=== PATIENT | male | born 1945 | race Caucasian/White ===

== ENCOUNTER 2017-06-11 09:42 | Inpatient (IN) | payer OTHER ==
--- NOTE | 2017-06-11 10:17 | PDOC ---
History of Present Illness - General Chief Complaint: Shortness of Breath Stated Complaint: SOB Time Seen by Provider: 06/11/17 10:08 - History of Present Illness Initial Comments: 06/11/17 10:16 Mr. Garcia is a 71 yo male with a significant past medical history of COPD, CAD s/p CABG, HTN, PVD, and CVA who presents to the emergency department with a 1 week history of non-specific abdominal discomfort and subjective fever/chils with occasional dizziness, diarrhea, and lack of appetite. The patient denies chest pain, shortness of breath, and headache. Denies nausea , vomit, and constipation. Denies dysuria, frequency, urgency and hematuria. Allergies: Penicillins Past History - Past Medical History Allergies/Adverse Reactions: Allergies Allergy/AdvReac Type Severity Reaction Status Date / Time Penicillins Allergy Rash Verified 06/11/17 09:50 Home Medications: Ambulatory Orders Acetaminophen [Tylenol .Regular Strength -] 650 mg PO Q4H PRN #0 tablet Alprazolam [Xanax] 1 mg PO TID PRN #0 tablet 06/16/13 Aspirin [ASA -] 325 mg PO DAILY #0 tablet NS 06/16/13 Atorvastatin Ca [Lipitor] 20 mg PO HS #0 tablet 06/16/13 Budesonide/Formeterol Fumarate [SYMBICORT 80/4.5mcg -] 2 ih IH BID #1 inhaler Diltiazem Cd [Cardizem Cd -] 300 mg PO DAILY #0 cap.cd.24h 06/16/13 Tiotropium [place] [Spiriva] 1 inh PO DAILY #1 inh 06/16/13 Valsartan/Hydrochlorothiazide [Valsartan-Hctz 160-12.5 mg Tab] 1 each PO DAILY 06/11/17 Cardiac Disorders: Yes (CABG 2007) HTN: Yes - Surgical History Cardiac Surgery: Yes (CARDIAC BYPASS) - Immunization History Immunization Up to Date: Yes - Suicide/Smoking/Psychosocial Hx Smoking Status: Yes Smoking History: Former smoker Have you smoked in the past 12 months: No Number of Cigarettes Smoked Daily: 0 If you are a former smoker, when did you quit?: over 30 years ago Information on smoking cessation initiated: No Hx Alcohol Use: No Drug/Substance Use Hx: No Substance Use Type: None Hx Substance Use Treatment: No Review of Systems - Review of Systems Comments:: 06/11/17 10:16 GENERAL/CONSTITUTIONAL: +Subjective fever and chills. No weakness. HEAD, EYES, EARS, NOSE AND THROAT: No change in vision. No ear pain or discharge. No sore throat. CARDIOVASCULAR: No chest pain or shortness of breath RESPIRATORY: No cough, wheezing, or hemoptysis. GASTROINTESTINAL: +Some diarrhea with abdominal discomfort. No nausea, vomiting , or constipation. GENITOURINARY: No dysuria, frequency, or change in urination. MUSCULOSKELETAL: No joint or muscle swelling or pain. No neck or back pain. SKIN: No rash NEUROLOGIC: No headache, vertigo, loss of consciousness, or change in strength/ sensation. ENDOCRINE: No increased thirst. No abnormal weight change HEMATOLOGIC/LYMPHATIC: No anemia, easy bleeding. ALLERGIC/IMMUNOLOGIC: No hives or skin allergy. *Physical Exam - Vital Signs Last Vital Signs Temp Pulse Resp BP Pulse Ox 97.6 F 71 16 127/63 93 L 06/11/17 09:51 06/11/17 09:51 06/11/17 09:51 06/11/17 09:51 06/11/17 09:51 - Physical Exam Comments: 06/11/17 10:16 GENERAL: Awake, alert, and fully oriented, in no acute distress HEAD: No signs of trauma, normocephalic, atraumatic EYES: PERRLA, EOMI, sclera anicteric, conjunctiva clear ENT: Auricles normal inspection, hearing grossly normal, nares patent, oropharynx clear without exudates. Moist mucosa NECK: Normal ROM, supple, no lymphadenopathy, JVD, or masses LUNGS: No distress, speaks full sentences, clear to auscultation bilaterally HEART: Regular rate and rhythm, normal S1 and S2, no murmurs, rubs or gallops, peripheral pulses normal and equal bilaterally. ABDOMEN: +Extremely audible/active bowel sounds. Soft, nontender. No guarding, no rebound. No masses EXTREMITIES: Normal inspection, Normal range of motion, no edema. No clubbing or cyanosis. NEUROLOGICAL: Cranial nerves II through XII grossly intact. Normal speech, no focal sensorimotor deficits SKIN: Warm, Dry, normal turgor, no rashes or lesions noted. ED Treatment Course - LABORATORY CBC & Chemistry Diagram: 06/11/17 10:31 06/11/17 10:31 Medical Decision Making - Medical Decision Making 06/11/17 16:22 Mr. Garcia presents with vague abdominal / headache/dizziness symptoms. Concern for sepsis with WBC count 19.5. UA clean, blood cultures drawn and vanc/ zosyn started. Will admit for follow-up and determination of infection source. *DC/Admit/Observation/Transfer Diagnosis at time of Disposition: Sepsis Qualifiers: Sepsis type: sepsis due to unspecified organism Qualified Code(s): A41.9 - Sepsis, unspecified organism - Discharge Dispostion Admit: Yes - Referrals Referrals: Chantal Bui MD [Primary Care Provider] -
--- NOTE | 2017-06-11 10:29 | PDOC ---
Attending Attestation - Resident Resident Name: Syd Allen - ED Attending Attestation I have performed the following: I have examined & evaluated the patient, The case was reviewed & discussed with the resident, I agree w/resident's findings & plan, Exceptions are as noted - HPI HPI: 06/11/17 10:26 Dyspnea at baseline, Flu Shot yesterday, Doesn't feel well since, bloated - Physicial Exam PE: 06/11/17 10:26 VSS, Nontoxic, on 3L NC which he wears at home. - Medical Decision Making 06/11/17 10:[address] Allen's Assessment and PLan
[2017-06-11 10:52] LABS: EOSINOPHIL 0.7 % (0-4.5); MCH 29.9 pg (25.7-33.7); MCHC 31.9 g/dl (32.0-35.9); MEAN CELL VOLUME 93.7 fl (80-96); NEUTROPHILS 88.8 % (42.8-82.8); PLATELET COUNT 264 K/MM3 (134-434); RDW 13.3 % (11.9-15.9); WHITE BLOOD COUNT 19.5 K/mm3 (4.0-10.0)
[2017-06-11 11:20] LABS: ALBUMIN 2.5 g/dl (3.4-5.0); ANION GAP 8 (8-16); BILIRUBIN,TOTAL 0.4 mg/dL (0.2-1.0); CALCIUM 7.9 mg/dL (8.5-10.1); CO2 28 mmol/L (21-32); CREATININE 2.6 mg/dL (0.7-1.3); GLUCOSE,RANDOM 154 mg/dL (74-106); SGPT/ALT 24 U/L (12-78); TOT PROT 6.3 g/dl (6.4-8.2)
[2017-06-11 11:23] LABS: ALK PHOS 47 U/L (45-117); TROPONIN I 0.02 ng/ml (0.00-0.05)
[2017-06-11 11:27] LABS: CPK 174 IU/L (39-308); SGOT/AST 39 U/L (15-37)
--- NOTE | 2017-06-11 11:27 | EKG ---
Test Reason : Blood Pressure : / mmHG Vent. Rate : 064 BPM Atrial Rate : 064 BPM P-R Int : 184 ms QRS Dur : 116 ms QT Int : 430 ms P-R-T Axes : 062 -03 085 degrees QTc Int : 443 ms SINUS RHYTHM WITH OCCASIONAL PREMATURE VENTRICULAR COMPLEXES NONSPECIFIC INTERVENTRICULAR CONDUCTION DELAY SEPTAL INFARCT CANNOT BE EXCLUDED ABNORMAL ECG WHEN COMPARED WITH ECG OF 01-APR-2015 13:22, LOSS OF R WAVE IN V2 NONSPECIFIC T WAVE ABNORMALITY NO LONGER EVIDENT IN INFERIOR LEADS CLINICAL; CORRELATION AND FOLLOW U TRACING IS RECOMMENDED Confirmed by SHERLYN LOPEZ MD ([id number]) on 06/11/2017 11:27:12 AM Referred By: Confirmed By:SHERLYN LOPEZ MD
[2017-06-11] MEDS ORDERED: VANCOMYCIN 1 GRAM (PRE-DOCKED) 1,000 MG/250 ML BAG IVPB ONE (15:23)
[2017-06-11 15:56] LABS: URINE APPEARANCE SLCLOUDY; URINE BILIRUBIN NEGATIVE (NEGATIVE); URINE BLOOD NEGATIVE (NEGATIVE); URINE COLOR YELLOW; URINE GLUCOSE (UA) NEGATIVE (NEGATIVE); URINE KETONE NEGATIVE (NEGATIVE); URINE LEUK ESTERASE NEGATIVE (NEGATIVE); URINE NITRITE NEGATIVE (NEGATIVE); URINE PROTEIN 1+ (NEGATIVE); URINE UROBILINOGEN NEGATIVE mg/dL (0.2-1.0)
[2017-06-11] MEDS ORDERED: PIPERACILLIN/TAZOB 3.375 GM/50 ML PRE-DOCKED IVPB SCH ×2 (16:00→22:00)
[2017-06-11] MEDS ORDERED: VANCOMYCIN 1 GRAM (PRE-DOCKED) 250 ML IVPB ONE (16:16)
[2017-06-11] MEDS ORDERED: PIPERACILLIN/TAZOB 3.375 GM 50 ML IVPB ONE (16:17)
[2017-06-11 16:49] LABS: URINE BACTERIA RARE /hpf (NONE SEEN); URINE HYALINE CAST 1 /lpf; URINE MUCUS RARE; URINE WBC 1 /hpf (3-5)
[2017-06-11] MEDS ORDERED: ACETAMINOPHEN 325 MG TABLET (FP) PO PRN (20:58)
[2017-06-11] MEDS ORDERED: ALPRAZolam 2 MG TABLET PO PRN (20:59)
[2017-06-11] MEDS ORDERED: PIPERACILLIN/TAZOBACTAM 3.375 GM VIAL IVPB ONE (21:46)
[2017-06-11] MEDS ORDERED: DEXTROSE 5%-WATER - 50 ML IVPB ONE (21:46)
[2017-06-11] MEDS ORDERED: PIPERACILLIN/TAZOB 3.375 GM 3.375 GM in DEXTROSE 5%-WATER - 50 ML IVPB ONE (22:00)
[2017-06-11] MEDS: ATORVASTATIN CA 20 MG TABLET (FP) PO SCH (22:04)
[2017-06-11] MEDS: BUDESONIDE/FORMETEROL FUMARATE 80/4.5 mcg INHALER IH SCH (22:04)
[2017-06-11] MEDS: ACLIDINIUM BROMIDE 400 MCG/INH AERO.POWD IH SCH (22:05)
[2017-06-11] MEDS ORDERED: PT OWN MED DRAWER 7, Y5N ONE (22:19)
--- NOTE | 2017-06-12 09:43 | HP ---
DATE OF ADMISSION: DATE OF DICTATION: 06/12/2017 This is a 71-year-old male known to have COPD, ASHD status post CABG, CVA with right hemiparesis, lives alone at home, came to the emergency room yesterday with complaints of fever, not eating, weakness of 1 week duration. In the ER he was febrile, and WBC count was high so got admitted. PHYSICAL EXAMINATION: General: Today he is awake, alert, and talking. Vital Signs: Stable. No fever today. BP is 140/80, pulse 72, respirations 20, temperature 98. HEENT: Unremarkable. Neck: Supple. Lungs: Air entry poor. Heart: S1, S2 normal. No S3 or S4. Abdomen: Mild distention present. Bowel sounds normal. Genitourinary: Urine incontinence persists. Legs: No edema. Neurologic: Right hemiparesis persists. Skin: No rashes. LABORATORY REPORTS: WBC 19.5 with hemoglobin 13, hematocrit 40, platelets 264. Electrolytes: Sodium 132, potassium 5.3, chloride 96, BUN 49, creatinine 4.6, blood sugar 154. IMPRESSION: Fever of unknown etiology, dehydration, severe chronic obstructive pulmonary disease, hypertension. PLAN: ID consult, . Will resume the hydration. Will repeat CBC, CMP tomorrow. [place] [id number]
[2017-06-12] MEDS ORDERED: PT OWN MED DRAWER 7, Y5N ONE ×3 (09:49→20:36)
[2017-06-12] MEDS: ACLIDINIUM BROMIDE 400 MCG/INH AERO.POWD IH SCH ×2 (09:52→21:13)
[2017-06-12] MEDS: ASPIRIN 325 MG TABLET PO SCH (09:52)
[2017-06-12] MEDS: HEPARIN NA (PORCINE) 5,000 UNITS/ML 1ML VIAL SQ SCH ×2 (09:52→21:12)
[2017-06-12] MEDS: VALSARTAN 160 MG TABLET (UD) PO SCH (09:52)
[2017-06-12] MEDS: BUDESONIDE/FORMETEROL FUMARATE 80/4.5 mcg INHALER IH SCH ×2 (09:52→21:12)
[2017-06-12] MEDS ORDERED: HYDROCHLOROTHIAZIDE 12.5 MG CAPSULE (FP) PO SCH (10:00)
[2017-06-12] MEDS ORDERED: PIPERACILLIN/TAZOB 3.375 GM 3.375 GM in DEXTROSE 5%-WATER - 50 ML IVPB SCH (10:00)
--- NOTE | 2017-06-12 15:02 | CON.ID ---
Consult Consult Specialty:: infectious diseases Reason for Consultation:: cough/r/o pna/abd pain,leukocytosis - History of Present Illness Chief Complaint: cough,abd discomfort History of Present Illness: Mr. Garcia is a 71 yo male with a significant past medical history of COPD, CAD s/p CABG, HTN, PVD, and CVA admitted with 1 week history of non-specific abdominal discomfort and subjective fever/chils with occasional dizziness, diarrhea, and lack of appetite. patient has also been complaining of cough episodic patient has a known h/o of emphysema and is on home o2 currently he is very uncomfortable because of coughing episodes and breathing issues - History Source History Provided By: Patient Limitations to Obtaining History: No Limitations - Alcohol/Substance Use Hx Alcohol Use: No - Smoking History Smoking history: Former smoker Have you smoked in the past 12 months: No Aproximately how many cigarettes per day: 0 If you are a former smoker, when did you quit?: over 30 years ago Home Medications - Allergies Allergies/Adverse Reactions: Allergies Allergy/AdvReac Type Severity Reaction Status Date / Time Penicillins Allergy Rash Verified 06/11/17 09:50 - Home Medications Home Medications: Ambulatory Orders Acetaminophen [Tylenol .Regular Strength -] 650 mg PO Q4H PRN #0 tablet Alprazolam [Xanax] 1 mg PO TID PRN #0 tablet 06/16/13 Aspirin [ASA -] 325 mg PO DAILY #0 tablet NS 06/16/13 Atorvastatin Ca [Lipitor] 20 mg PO HS #0 tablet 06/16/13 Budesonide/Formeterol Fumarate [SYMBICORT 80/4.5mcg -] 2 ih IH BID #1 inhaler Diltiazem Cd [Cardizem Cd -] 300 mg PO DAILY #0 cap.cd.24h 06/16/13 Tiotropium [place] [Spiriva] 1 inh PO DAILY #1 inh 06/16/13 Valsartan/Hydrochlorothiazide [Valsartan-Hctz 160-12.5 mg Tab] 1 each PO DAILY 06/11/17 Review of Systems - Review of Systems Constitutional: reports: Weakness, Other Eyes: reports: No Symptoms HENT: reports: No Symptoms Neck: reports: No Symptoms Cardiovascular: reports: No Symptoms Respiratory: reports: SOB, SOB on Exertion Gastrointestinal: reports: Abdominal Pain, Other Genitourinary: reports: No Symptoms Musculoskeletal: reports: No Symptoms Integumentary: reports: No Symptoms Neurological: reports: No Symptoms Endocrine: reports: No Symptoms Hematology/Lymphatic: reports: No Symptoms Psychiatric: reports: No Symptoms Physical Exam Vital Signs: Vital Signs Temperature 99.6 F 06/12/17 13:43 Pulse Rate 77 06/12/17 13:43 Respiratory Rate 19 06/12/17 13:43 Blood Pressure 140/71 06/12/17 13:43 O2 Sat by Pulse Oximetry (%) 94 L 06/12/17 09:00 Constitutional: Yes: Calm, Moderate Distress Eyes: Yes: Conjunctiva Clear HENT: Yes: Atraumatic Neck: Yes: Supple, Trachea Midline Cardiovascular: Yes: S1, S2 Respiratory: Yes: On Nasal O2, Poor Air Entry (at the bases), Rhonchi Gastrointestinal: Yes: Distention, Hypoactive Bowel Sounds, Tenderness, Other ( constipation) Musculoskeletal: Yes: WNL Extremities: Yes: WNL Imaging - Results X-ray: Report Reviewed, Image Reviewed Assessment/Plan copd exacerebration r/o pneumonia r/o paralytic ileus constipation abd pain plan will continue zosyn--patient has already couple of doses with no apparent reaction would consider keeping npo for the time being will order ct scan patient might need laxatives resp support close watch on breathing
[2017-06-12] MEDS ORDERED: DEXTROSE 5%-WATER - 50 ML IVPB ONE (16:04)
[2017-06-12] MEDS ORDERED: PIPERACILLIN/TAZOBACTAM 2.25 GM VIAL IVPB ONE (16:04)
[2017-06-12] MEDS: PIPERACILLIN/TAZOB 2.25 GM 2.25 GM in DEXTROSE 5%-WATER - 50 ML IVPB SCH ×2 (16:12→19:57)
[2017-06-12] MEDS: methylPREDNISolone NA SUCC 125 MG/2 ML VIAL IVPB SCH (18:16)
[2017-06-12] MEDS ORDERED: ALBUTEROL SO4 2.5/IPRATROPIUM 0.5 INH SOL 3 ML VIAL.NEB. NEB ONE ×2 (18:28→18:30)
[2017-06-12 18:42] LABS: ARTERIAL BLD GAS O2 SATURATION 90.6 % (90-98.9); ARTERIAL BLOOD GAS BASE EXCESS 2.2 meq/l (-2-2); ARTERIAL BLOOD GAS HCO3 28.1 meq/L (22-26); ARTERIAL BLOOD GAS PO2 61.9 mmHg (70-100); ARTERIAL BLOOD GAS pH 7.36 (7.35-7.45)
[2017-06-12 18:44] LABS: ALLENS TEST POSITIVE; ART PUNCT SITE RIGHT RADIAL; PT. ON O2? yes
[2017-06-12 18:45] LABS: LPM/O2% 40%
--- NOTE | 2017-06-12 20:12 | RAPID ---
Physical Examination Vital Signs: Mr. Garcia is a 71 yo male with a significant past medical history of COPD, CAD s/p CABG, HTN, PVD, and CVA who presents to the emergency department with a 1 week history of non-specific abdominal discomfort and subjective fever/chils with occasional dizziness, diarrhea, and lack of appetite. Rapid response was called overhead and pet nutrition specialist team immediately responded. Patient was found on bed with labored breathing and pallor, 02 sat of 85% on 3L and BP of 175/90. Labs revealed elevated BUN/creatinine, ordered patricio. Stat CXR , ABG, patricio, Duoneb, Solumedrol, Symbicort and BiPap ordered. Patients O2 sat improved to 96% and VS of 135/70, HR of 85. PCP was contacted (Dr. Bui). Nephrology Consult recommended
[2017-06-12] MEDS: ATORVASTATIN CA 20 MG TABLET (FP) PO SCH (21:12)
[2017-06-13] MEDS ORDERED: DEXTROSE 5%-WATER - 50 ML IVPB ONE ×3 (00:49→18:13)
[2017-06-13] MEDS ORDERED: PIPERACILLIN/TAZOBACTAM 2.25 GM VIAL IVPB ONE ×3 (00:49→18:13)
[2017-06-13] MEDS: PIPERACILLIN/TAZOB 2.25 GM 2.25 GM in DEXTROSE 5%-WATER - 50 ML IVPB SCH ×3 (01:01→18:26)
[2017-06-13] MEDS: methylPREDNISolone NA SUCC 125 MG/2 ML VIAL IVPB SCH ×2 (02:35→09:29)
[2017-06-13] MEDS ORDERED: PT OWN MED DRAWER 7, Y5N ONE ×3 (09:22→20:39)
[2017-06-13] MEDS: VALSARTAN 160 MG TABLET (UD) PO SCH (09:28)
[2017-06-13] MEDS: ASPIRIN 325 MG TABLET PO SCH (09:29)
[2017-06-13] MEDS: BUDESONIDE/FORMETEROL FUMARATE 80/4.5 mcg INHALER IH SCH (09:30)
[2017-06-13] MEDS: HEPARIN NA (PORCINE) 5,000 UNITS/ML 1ML VIAL SQ SCH ×2 (09:35→21:08)
[2017-06-13] MEDS: ACLIDINIUM BROMIDE 400 MCG/INH AERO.POWD IH SCH (09:35)
--- NOTE | 2017-06-13 09:35 | CONSULT ---
Consultation: PULMONARY CONSULT REQUESTING PROVIDER: Dr. Bui CONSULT REQUEST: We have been asked to medically evaluate this patient for Hypoxia HPI: Mr. Garcia is a 71yo M with PMHx of COPD (on 3L O2 RTC), CAD (s/p CABG), CVA (w / residual R sided wkness). He presented to ER w/ gradual onset SOB + productive cough w/ thick, white sputum for a couple of days. He endorses recent fevers/chills along w/ headache, soft stools, and abdominal discomfort. Unsure of sick contacts. Recently received flu shot within the past month. Seen by Dr. Kim 3 weeks ago in office for gradual onset SOB, had O2 pre/post measurements, and was prescribed 3L O2 around the clock instead of as needed. In the ER, the patient had Tmax 100.5, WBC 19.5, diagnosed w/ +SIRS of unknown etiology, started on Vanc/Zosyn. On the floors, rapid response was called on the patient for labored breathing. His O2 sat was 85% on 3L. ABG ordered, showed likely chronic, compensated respiratory acidosis. Duonebs, Solumedrol, and BiPAP (w/ 35% O2) ordered with relief of symptoms and O2 sat improvement to 96%. Currently, the pt denies SOB, CP, and cough has decreased. 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 Smoking hx - Prior smoker, 100 pack year smoking history REVIEW OF SYSTEMS: CONSTITUTIONAL: Absent: fever, chills, diaphoresis, generalized weakness, malaise, loss of appetite, weight change HEENT: Absent: rhinorrhea, nasal congestion, throat pain, throat swelling, difficulty swallowing, mouth swelling, ear pain, eye pain, visual changes CARDIOVASCULAR: Absent: chest pain, syncope, palpitations, irregular heart rate, lightheadedness , peripheral edema RESPIRATORY: Absent: cough, shortness of breath, dyspnea with exertion, orthopnea, wheezing, stridor, hemoptysis GASTROINTESTINAL: Absent: abdominal pain, abdominal distension, nausea, vomiting, diarrhea, constipation, melena, hematochezia GENITOURINARY: Absent: dysuria, frequency, urgency, hesitancy, hematuria, flank pain, genital pain MUSCULOSKELETAL: Absent: myalgia, arthralgia, joint swelling, back pain, neck pain SKIN: Absent: rash, itching, pallor HEMATOLOGIC/IMMUNOLOGIC: Absent: easy bleeding, easy bruising, lymphadenopathy, frequent infections ENDOCRINE: Absent: unexplained weight gain, unexplained weight loss, heat intolerance, cold intolerance NEUROLOGIC: Absent: headache, focal weakness or paresthesias, dizziness, unsteady gait, seizure, mental status changes, bladder or bowel incontinence PSYCHIATRIC: Absent: anxiety, depression, suicidal or homicidal ideation, hallucinations. PHYSICAL EXAMINATION Vital Signs Temperature 97.6 F 06/13/17 06:00 Pulse Rate 64 06/13/17 06:00 Respiratory Rate 20 06/13/17 06:00 Blood Pressure 139/67 06/13/17 06:00 O2 Sat by Pulse Oximetry (%) 94 L 06/12/17 22:00 GEN: AAOx3, NAD, Lying comfortably on NC 3L, Does not look ill HEENT: PERRLA, EOMi, No cervical LAD CV: Distant heart sounds, S1, S2, RRR LUNG: Decreased breath sounds throughout, fine bibasilar crackles ABD: Soft, NT, ND, normoactive BS MSK: RUE 4/5, RLE 4/5, LUE 5/5, LLE 5/5. R pedal edema 2+ NEURO: CN 2-12 intact, R sided muscle strength reduced (from prior CVA) Laboratory Last Values WBC 19.5 K/mm3 (4.0-10.0) H D 06/11/17 10:31 RBC 4.36 M/mm3 (4.00-5.60) 06/11/17 10:31 Hgb 13.0 GM/dL (11.7-16.9) D 06/11/17 10:31 Hct 40.9 % (35.4-49) 06/11/17 10:31 MCV 93.7 fl (80-96) 06/11/17 10:31 MCH 29.9 pg (25.7-33.7) 06/11/17 10:31 MCHC 31.9 g/dl (32.0-35.9) L 06/11/17 10:31 RDW 13.3 % (11.9-15.9) 06/11/17 10:31 Plt Count 264 K/MM3 (134-434) D 06/11/17 10:31 MPV 9.0 fl (7.5-11.1) 06/11/17 10:31 Neutrophils % 88.8 % (42.8-82.8) H 06/11/17 10:31 Lymphocytes % 3.8 % (8-40) L D 06/11/17 10:31 Monocytes % 6.7 % (3.8-10.2) 06/11/17 10:31 Eosinophils % 0.7 % (0-4.5) 06/11/17 10:31 Basophils % 0.0 % (0-2.0) 06/11/17 10:31 Puncture Site Right radial 06/12/17 18:35 ABG pH 7.36 (7.35-7.45) 06/12/17 18:35 ABG pCO2 at Pt Temp 51.3 mmHg (35-45) H 06/12/17 18:35 ABG pO2 at Pt Temp 61.9 mmHg (70-100) L 06/12/17 18:35 ABG HCO3 28.1 meq/L (22-26) H 06/12/17 18:35 ABG O2 Sat (Measured) 90.6 % (90-98.9) 06/12/17 18:35 ABG O2 Content 16.2 % vol (15-22) 06/12/17 18:35 ABG Base Excess 2.2 meq/l (-2-2) H 06/12/17 18:35 Derrick Test Positive 06/12/17 18:35 O2 Delivery Device ventimask 06/12/17 18:35 Oxygen Flow Rate 40% 06/12/17 18:35 PEEP 0.0 cmH2O 06/12/17 18:35 Sodium 132 mmol/L (136-145) L 06/11/17 10:31 Potassium 5.3 mmol/L (3.5-5.1) H D 06/11/17 10:31 Chloride 96 mmol/L (98-107) L 06/11/17 10:31 Carbon Dioxide 28 mmol/L (21-32) 06/11/17 10:31 Anion Gap 8 (8-16) 06/11/17 10:31 BUN 49 mg/dL (7-18) H D 06/11/17 10:31 Creatinine 2.6 mg/dL (0.7-1.3) H D 06/11/17 10:31 Creat Clearance w eGFR 24.32 (>60) 06/11/17 10:31 Random Glucose 154 mg/dL (74-106) H D 06/11/17 10:31 Lactic Acid 0.8 mmol/L (0.4-2.0) 06/12/17 15:45 Calcium 7.9 mg/dL (8.5-10.1) L 06/11/17 10:31 Total Bilirubin 0.4 mg/dL (0.2-1.0) 06/11/17 10:31 AST 39 U/L (15-37) H D 06/11/17 10:31 ALT 24 U/L (12-78) D 06/11/17 10:31 Alkaline Phosphatase 47 U/L (45-117) D 06/11/17 10:31 Creatine Kinase 174 IU/L (39-308) 06/11/17 10:31 Creatine Kinase Index 1.3 % (0.0-5.0) 06/11/17 10:31 CK-MB (CK-2) 2.379 ng/mL (0.5-3.6) 06/11/17 10:31 Troponin I 0.02 ng/ml (0.00-0.05) 06/11/17 10:31 Total Protein 6.3 g/dl (6.4-8.2) L 06/11/17 10:31 Albumin 2.5 g/dl (3.4-5.0) L D 06/11/17 10:31 Urine Color Yellow 06/11/17 13:14 Urine Appearance Slcloudy 06/11/17 13:14 Urine pH 5.0 (5.0-8.0) D 06/11/17 13:14 Ur Specific [place] 1.020 (1.005-1.025) 06/11/17 13:14 Urine Protein 1+ (NEGATIVE) H 06/11/17 13:14 Urine Glucose (UA) Negative (NEGATIVE) 06/11/17 13:14 Urine Ketones Negative (NEGATIVE) 06/11/17 13:14 Urine Blood Negative (NEGATIVE) 06/11/17 13:14 Urine Nitrite Negative (NEGATIVE) 06/11/17 13:14 Urine Bilirubin Negative (NEGATIVE) 06/11/17 13:14 Urine Urobilinogen Negative mg/dL (0.2-1.0) 06/11/17 13:14 Urine RBC None /hpf (0-3) 06/11/17 13:14 Urine WBC 1 /hpf (3-5) 06/11/17 13:14 Ur Epithelial Cells Rare /hpf (FEW) 06/11/17 13:14 Urine Bacteria Rare /hpf (NONE SEEN) 06/11/17 13:14 Hyaline Casts 1 /lpf 06/11/17 13:14 Urine Mucus Rare 06/11/17 13:14 Home Medication List Medication Instructions Recorded Confirmed Type Valsartan/Hydrochlorothiazide 1 each PO DAILY 06/11/17 06/11/17 History [Valsartan-Hctz 160-12.5 mg Tab] Budesonide/Formeterol Fumarate 1 inh PO BID 06/13/17 06/13/17 History [SYMBICORT 160/4.5mcg -] Active Medications Generic Name Dose Route Start Last Admin Trade Name Freq PRN Reason Stop Dose Admin Acetaminophen 650 mg 06/11/17 20:58 06/12/17 02:07 Tylenol - PO 650 mg Q4H PRN Administration FEVER OR PAIN Alprazolam 1 mg 06/11/17 20:59 Xanax - PO Q8H PRN ANXIETY Aspirin 325 mg 06/12/17 10:00 06/13/17 09:29 Asa - PO 325 mg DAILY LUANN Administration Atorvastatin Calcium 20 mg 06/11/17 22:00 06/12/17 21:12 Lipitor - PO 20 mg HS LUANN Administration Budesonide/Formoterol Fumarate 1 puff 06/13/17 10:00 Symbicort 160/4.5mcg - IH BID LUANN Diltiazem HCl 300 mg 06/12/17 10:00 06/13/17 09:28 Cardizem Cd - PO 300 mg DAILY LUANN Administration Heparin Sodium (Porcine) 5,000 unit 06/12/17 10:00 06/13/17 09:35 Heparin - SQ 5,000 unit BID LUANN Administration Piperacillin Sod/Tazobactam 50 mls @ 100 mls/hr 06/12/17 15:00 06/13/17 01:01 Sod 2.25 gm/ Dextrose IVPB 100 mls/hr Q8H-IV LUANN Administration Protocol Methylprednisolone Sodium Succinate 100 mg 06/12/17 18:15 06/13/17 09:29 Solu-Medrol - IVPB 100 mg Q8H-IV LUANN Administration Tiotropium [place] 1 puff 06/13/17 10:00 Spiriva - IH DAILY LUANN Valsartan 160 mg 06/12/17 10:00 06/13/17 09:28 Diovan - PO 160 mg DAILY LUANN Administration IMAGING: CXR - No cardiopulmonary pathology ASSESSMENT/PLAN: Pt is a 71yo M with PMHx of COPD, CAD, CVA who presented w/ gradual onset SOB + productive cough, recent fevers/chills/headache/diarrhea admitted for likely COPD Exacerbation. # Acute COPD Exacerbation - secondary to likely viral infection, unlikely PNA - ABG shows likely chronic, compensated respiratory acidosis - Continue IV Solumedrol 100mg q8H - Added Albuterol Q4 PRN, avoid LINSEY bc patient already on LAMA - Continue O2 as needed - Continue BIPAP at 35% as needed - Continue home Spiriva + Symbicort - Abx unlikely needed at this time due to improved clinical status # +SIRS - unknown source - UA negative, Blood cx pending - If workup is negative, likely related to ?viral illness - F/u CBC, Temp Rest as per Primary. We will continue to follow the patient. Thank you Linnea Mary MD - PGY1 Visit type - Emergency Visit Emergency Visit: No - New Patient This patient is new to me today: Yes Date on this admission: 06/13/17 - Critical Care Critical Care patient: No
--- NOTE | 2017-06-13 09:50 | PN ---
Progress Note, Physician Chief Complaint: Feels better History of Present Illness: Had rapid response team attended last night Feels better this AM - Current Medication List Current Medications: Active Medications Acetaminophen (Tylenol -) 650 mg PO Q4H PRN PRN Reason: FEVER OR PAIN Last Admin: 06/12/17 02:07 Dose: 650 mg Alprazolam (Xanax -) 1 mg PO Q8H PRN PRN Reason: ANXIETY Aspirin (Asa -) 325 mg PO DAILY [facility] Last Admin: 06/13/17 09:29 Dose: 325 mg Atorvastatin Calcium (Lipitor -) 20 mg PO HS [facility] Last Admin: 06/12/17 21:12 Dose: 20 mg Budesonide/Formoterol Fumarate (Symbicort 80/4.5mcg -) 1 puff IH BID [facility] Last Admin: 06/13/17 09:30 Dose: 1 puff Diltiazem HCl (Cardizem Cd -) 300 mg PO DAILY [facility] Last Admin: 06/13/17 09:28 Dose: 300 mg Heparin Sodium (Porcine) (Heparin -) 5,000 unit SQ BID [facility] Last Admin: 06/13/17 09:35 Dose: 5,000 unit Piperacillin Sod/Tazobactam (Sod 2.25 gm/ Dextrose) 50 mls @ 100 mls/hr IVPB Q8H-IV [facility] PRN Reason: Protocol Last Admin: 06/13/17 01:01 Dose: 100 mls/hr Methylprednisolone Sodium Succinate (Solu-Medrol -) 100 mg IVPB Q8H-IV [facility] Last Admin: 06/13/17 09:29 Dose: 100 mg Valsartan (Diovan -) 160 mg PO DAILY [facility] Last Admin: 06/13/17 09:28 Dose: 160 mg - Objective Vital Signs: Vital Signs Temperature 97.6 F 06/13/17 06:00 Pulse Rate 64 06/13/17 06:00 Respiratory Rate 20 06/13/17 06:00 Blood Pressure 139/67 06/13/17 06:00 O2 Sat by Pulse Oximetry (%) 94 L 06/12/17 22:00 Constitutional: Yes: No Distress Eyes: Yes: WNL HENT: Yes: WNL Neck: Yes: WNL Cardiovascular: Yes: WNL Respiratory: Yes: On Nasal O2 ...Rectal Exam: Yes: WNL Musculoskeletal: Yes: Muscle Weakness Edema: No Neurological: Yes: Alert Psychiatric: Yes: Alert Assessment/Plan Continue same trt
[2017-06-13] MEDS ORDERED: ALBUTEROL SO4 2.5/IPRATROPIUM 0.5 INH SOL 3 ML VIAL.NEB. NEB PRN (09:57)
[2017-06-13] MEDS ORDERED: BUDESONIDE/FORMETEROL FUMARATE 160/4.5 mcg INHALER IH SCH (10:00)
--- NOTE | 2017-06-13 10:35 | PN ---
Teaching Attending Note Name of Resident: Linnea Mary ATTENDING PHYSICIAN STATEMENT I saw and evaluated the patient. I reviewed the resident's note and discussed the case with the resident. I agree with the resident's findings and plan as documented. SUBJECTIVE: 71 M, O2 dependent COPD (3L NC), CAD, S/P CABG, and CVA (w/ residual R sided weakness). Admitted via the ER due to progressive SOB, productive cough w/ thick, white sputum for a couple of days. No hemoptysis. No travel history or sick contacts. No overt fever or chills. 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 Improved with therapy and NIPPV. CXR: Chronic changes Intake & Output 06/10/17 06/11/17 06/12/17 06/13/17 23:59 23:59 23:59 23:59 Intake Total 50 200 100 Output Total 970 600 Balance 50 -770 -500 Weight 149 lb 1 oz 159 lb 2 oz 164 lb Last Vital Signs Temp Pulse Resp BP Pulse Ox 97.6 F 64 20 139/67 94 L 06/13/17 06:00 06/13/17 06:00 06/13/17 06:00 06/13/17 06:00 06/12/17 22:00 Active Medications Acetaminophen (Tylenol -) 650 mg PO Q4H PRN PRN Reason: FEVER OR PAIN Last Admin: 06/12/17 02:07 Dose: 650 mg Albuterol/Ipratropium (Duoneb -) 1 amp NEB Q4H PRN PRN Reason: SHORTNESS OF BREATH Alprazolam (Xanax -) 1 mg PO Q8H PRN PRN Reason: ANXIETY Aspirin (Asa -) 325 mg PO DAILY [facility] Last Admin: 06/13/17 09:29 Dose: 325 mg Atorvastatin Calcium (Lipitor -) 20 mg PO HS [facility] Last Admin: 06/12/17 21:12 Dose: 20 mg Budesonide/Formoterol Fumarate (Symbicort 160/4.5mcg -) 1 puff IH BID [facility] Diltiazem HCl (Cardizem Cd -) 300 mg PO DAILY [facility] Last Admin: 06/13/17 09:28 Dose: 300 mg Heparin Sodium (Porcine) (Heparin -) 5,000 unit SQ BID [facility] Last Admin: 06/13/17 09:35 Dose: 5,000 unit Piperacillin Sod/Tazobactam (Sod 2.25 gm/ Dextrose) 50 mls @ 100 mls/hr IVPB Q8H-IV [facility] PRN Reason: Protocol Last Admin: 06/13/17 10:27 Dose: 100 mls/hr Methylprednisolone Sodium Succinate (Solu-Medrol -) 100 mg IVPB Q8H-IV [facility] Last Admin: 06/13/17 09:29 Dose: 100 mg Tiotropium [place] (Spiriva -) 1 puff IH DAILY [facility] Valsartan (Diovan -) 160 mg PO DAILY [facility] Last Admin: 06/13/17 09:28 Dose: 160 mg GEN: AAOx3, NAD on 3 L NC HEENT: PERRLA, EOMi, No cervical LAD CV: Distant heart sounds, S1, S2, RRR LUNG: Decreased breath sounds throughout, fine bibasilar crackles ABD: Soft, NT, ND, normoactive BS MSK: RUE 4/5, RLE 4/5, LUE 5/5, LLE 5/5. R pedal edema 2+ NEURO: CN 2-12 intact, R sided muscle strength reduced (from prior CVA) Laboratory Results - last 24 hr 06/12/17 06/12/17 15:45 18:35 Puncture Site Right radial ABG pH 7.36 ABG pCO2 at Pt Temp 51.3 H ABG pO2 at Pt Temp 61.9 L ABG HCO3 28.1 H ABG O2 Sat (Measured) 90.6 ABG O2 Content 16.2 ABG Base Excess 2.2 H Derirck Test Positive O2 Delivery Device ventimask Oxygen Flow Rate 40% PEEP 0.0 Lactic Acid 0.8 ASSESSMENT/PLAN: Acute Exacerbation of COPD (?) Viral Illness No Radiographic evidence of PNA Acute on Chronic Bronchitis SIRS O2 dependent COPD IV Medrol O2 as needed BD TX Noted ABX per ID Follow cultures NIPPV if needed for WOB LAMA/LABA/ICS -> Avoid LINSEY VTE prophylaxis Will follow Dr Masterson
[2017-06-13] MEDS: TIOTROPIUM BROMIDE 18 MCG/INH (DEVICE W/ 5 CAPSULES) IH SCH (14:07)
[2017-06-13] MEDS: BUDESONIDE/FORMETEROL FUMARATE 160/4.5 mcg INHALER IH SCH ×2 (14:07→21:08)
--- NOTE | 2017-06-13 16:11 | PN ---
Progress Note, Physician History of Present Illness: patient was drinking contrast and then went into rapid response stabilized had a bm today no complaints - Current Medication List Current Medications: Active Medications Acetaminophen (Tylenol -) 650 mg PO Q4H PRN PRN Reason: FEVER OR PAIN Last Admin: 06/12/17 02:07 Dose: 650 mg Albuterol Sulfate (Ventolin 0.083% Nebulizer Soln -) 1 amp NEB Q4H PRN PRN Reason: SHORT OF BREATH/WHEEZING Alprazolam (Xanax -) 1 mg PO Q8H PRN PRN Reason: ANXIETY Aspirin (Asa -) 325 mg PO DAILY [facility] Last Admin: 06/13/17 09:29 Dose: 325 mg Atorvastatin Calcium (Lipitor -) 20 mg PO HS [facility] Last Admin: 06/12/17 21:12 Dose: 20 mg Budesonide/Formoterol Fumarate (Symbicort 160/4.5mcg -) 2 puff IH BID [facility] Last Admin: 06/13/17 14:07 Dose: Not Given Diltiazem HCl (Cardizem Cd -) 300 mg PO DAILY [facility] Last Admin: 06/13/17 09:28 Dose: 300 mg Heparin Sodium (Porcine) (Heparin -) 5,000 unit SQ BID [facility] Last Admin: 06/13/17 09:35 Dose: 5,000 unit Piperacillin Sod/Tazobactam (Sod 2.25 gm/ Dextrose) 50 mls @ 100 mls/hr IVPB Q8H-IV [facility] PRN Reason: Protocol Last Admin: 06/13/17 10:27 Dose: 100 mls/hr Methylprednisolone Sodium Succinate (Solu-Medrol -) 80 mg IVPB Q8H-IV [facility] Tiotropium [place] (Spiriva -) 1 puff IH DAILY [facility] Last Admin: 06/13/17 14:07 Dose: Not Given Valsartan (Diovan -) 160 mg PO DAILY [facility] Last Admin: 06/13/17 09:28 Dose: 160 mg - Objective Vital Signs: Vital Signs Temperature 98.4 F 06/13/17 14:52 Pulse Rate 70 06/13/17 14:52 Respiratory Rate 22 06/13/17 14:52 Blood Pressure 150/71 06/13/17 14:52 O2 Sat by Pulse Oximetry (%) 92 L 06/13/17 14:32 Constitutional: Yes: No Distress, Calm HENT: Yes: Atraumatic Cardiovascular: Yes: Regular Rate and Rhythm Respiratory: Yes: Poor Air Entry, Rhonchi Gastrointestinal: Yes: Normal Bowel Sounds, Soft Musculoskeletal: Yes: Other Extremities: Yes: Other Neurological: Yes: Alert, Oriented Psychiatric: Yes: Alert Assessment/Plan copd exacerebration r/o pneumonia r/o paralytic ileus constipation abd pain plan continue abx for now cx negative will stop abx from tomorrow close watch repeat labs tomorrow
[2017-06-13] MEDS: methylPREDNISolone NA SUCC 40 MG/1 ML VIAL IVPB SCH (18:26)
[2017-06-13] MEDS: ATORVASTATIN CA 20 MG TABLET (FP) PO SCH (21:08)
[2017-06-14] MEDS ORDERED: PIPERACILLIN/TAZOBACTAM 2.25 GM VIAL IVPB ONE ×3 (01:22→17:44)
[2017-06-14] MEDS: PIPERACILLIN/TAZOB 2.25 GM 2.25 GM in DEXTROSE 5%-WATER - 50 ML IVPB SCH ×3 (01:31→17:52)
[2017-06-14] MEDS: methylPREDNISolone NA SUCC 40 MG/1 ML VIAL IVPB SCH ×3 (02:09→17:46)
[2017-06-14] MEDS ORDERED: PT OWN MED DRAWER 7, Y5N ONE ×2 (05:39→10:37)
[2017-06-14 09:29] LABS: MCH 30.1 pg (25.7-33.7); MCHC 32.9 g/dl (32.0-35.9); MEAN CELL VOLUME 91.4 fl (80-96); PLATELET COUNT 343 K/MM3 (134-434); RDW 13.1 % (11.9-15.9); WHITE BLOOD COUNT 9.1 K/mm3 (4.0-10.0)
--- NOTE | 2017-06-14 09:29 | PN ---
Progress Note, Physician Chief Complaint: Feels better History of Present Illness: Feels weak - Current Medication List Current Medications: Active Medications Acetaminophen (Tylenol -) 650 mg PO Q4H PRN PRN Reason: FEVER OR PAIN Last Admin: 06/12/17 02:07 Dose: 650 mg Albuterol Sulfate (Ventolin 0.083% Nebulizer Soln -) 1 amp NEB Q4H PRN PRN Reason: SHORT OF BREATH/WHEEZING Alprazolam (Xanax -) 1 mg PO Q8H PRN PRN Reason: ANXIETY Last Admin: 06/13/17 21:12 Dose: 1 mg Aspirin (Asa -) 325 mg PO DAILY [facility] Last Admin: 06/13/17 09:29 Dose: 325 mg Atorvastatin Calcium (Lipitor -) 20 mg PO HS [facility] Last Admin: 06/13/17 21:08 Dose: 20 mg Budesonide/Formoterol Fumarate (Symbicort 160/4.5mcg -) 2 puff IH BID [facility] Last Admin: 06/13/17 21:08 Dose: 2 puff Diltiazem HCl (Cardizem Cd -) 300 mg PO DAILY [facility] Last Admin: 06/13/17 09:28 Dose: 300 mg Heparin Sodium (Porcine) (Heparin -) 5,000 unit SQ BID [facility] Last Admin: 06/13/17 21:08 Dose: 5,000 unit Piperacillin Sod/Tazobactam (Sod 2.25 gm/ Dextrose) 50 mls @ 100 mls/hr IVPB Q8H-IV [facility] PRN Reason: Protocol Last Admin: 06/14/17 01:31 Dose: 100 mls/hr Methylprednisolone Sodium Succinate (Solu-Medrol -) 80 mg IVPB Q8H-IV [facility] Last Admin: 06/14/17 02:09 Dose: 80 mg Tiotropium [place] (Spiriva -) 1 puff IH DAILY [facility] Last Admin: 06/13/17 14:07 Dose: Not Given Valsartan (Diovan -) 160 mg PO DAILY [facility] Last Admin: 06/13/17 09:28 Dose: 160 mg - Objective Vital Signs: Vital Signs Temperature 97.5 F L 06/14/17 09:00 Pulse Rate 76 06/14/17 09:00 Respiratory Rate 20 06/14/17 09:00 Blood Pressure 176/84 06/14/17 09:00 O2 Sat by Pulse Oximetry (%) 92 L 06/14/17 09:00 Constitutional: Yes: Mild Distress Eyes: Yes: WNL HENT: Yes: WNL Neck: Yes: WNL Cardiovascular: Yes: WNL Respiratory: Yes: On Nasal O2, Poor Air Entry Gastrointestinal: Yes: WNL ...Rectal Exam: Yes: Deferred Genitourinary: Yes: WNL Edema: No Peripheral Pulses WNL: Yes Neurological: Yes: Alert
[2017-06-14 09:56] LABS: ANION GAP 12 (8-16); CALCIUM 8.3 mg/dL (8.5-10.1); CO2 30 mmol/L (21-32); CREATININE 1.9 mg/dL (0.7-1.3); GLUCOSE,RANDOM 146 mg/dL (74-106)
[2017-06-14] MEDS ORDERED: DEXTROSE 5%-WATER - 50 ML IVPB ONE ×2 (10:37→17:44)
[2017-06-14] MEDS: TIOTROPIUM BROMIDE 18 MCG/INH (DEVICE W/ 5 CAPSULES) IH SCH (10:49)
[2017-06-14] MEDS: BUDESONIDE/FORMETEROL FUMARATE 160/4.5 mcg INHALER IH SCH ×2 (10:51→21:36)
[2017-06-14] MEDS: HEPARIN NA (PORCINE) 5,000 UNITS/ML 1ML VIAL SQ SCH ×2 (10:53→21:36)
[2017-06-14] MEDS: ASPIRIN 325 MG TABLET PO SCH (10:53)
[2017-06-14] MEDS: VALSARTAN 160 MG TABLET (UD) PO SCH (10:53)
--- NOTE | 2017-06-14 13:41 | PN ---
Physical Exam: PULMONARY SUBJECTIVE: Patient seen and examined. No CP or SOB overnight. Still has productive cough with thick white sputum. No fevers, no chills. Afebrile thoughout the night. Has not needed BiPAP, now on 2L NC OBJECTIVE: Vital Signs Period Temp Pulse Resp BP Sys/Ruiz Pulse Ox Last 24 Hr 97.5 F-98.4 F 69-76 20-22 143-176/71-84 92-97 GEN: AAOx3, NAD, Lying comfortably on NC 3L, Does not look ill HEENT: PERRLA, EOMi, No cervical LAD CV: Distant heart sounds, S1, S2, RRR LUNG: Decreased breath sounds throughout, no crackles ABD: Soft, NT, ND, normoactive BS MSK: RUE 4/5, RLE 4/5, LUE 5/5, LLE 5/5. R pedal edema 2+ NEURO: CN 2-12 intact, R sided muscle strength reduced (from prior CVA) Laboratory Last Values WBC 9.1 K/mm3 (4.0-10.0) D 06/14/17 08:30 RBC 4.37 M/mm3 (4.00-5.60) 06/14/17 08:30 Hgb 13.1 GM/dL (11.7-16.9) 06/14/17 08:30 Hct 39.9 % (35.4-49) 06/14/17 08:30 MCV 91.4 fl (80-96) 06/14/17 08:30 MCH 30.1 pg (25.7-33.7) 06/14/17 08:30 MCHC 32.9 g/dl (32.0-35.9) 06/14/17 08:30 RDW 13.1 % (11.9-15.9) 06/14/17 08:30 Plt Count 343 K/MM3 (134-434) D 06/14/17 08:30 MPV 8.0 fl (7.5-11.1) D 06/14/17 08:30 Neutrophils % 88.8 % (42.8-82.8) H 06/11/17 10:31 Lymphocytes % 3.8 % (8-40) L D 06/11/17 10:31 Monocytes % 6.7 % (3.8-10.2) 06/11/17 10:31 Eosinophils % 0.7 % (0-4.5) 06/11/17 10:31 Basophils % 0.0 % (0-2.0) 06/11/17 10:31 Puncture Site Right radial 06/12/17 18:35 ABG pH 7.36 (7.35-7.45) 06/12/17 18:35 ABG pCO2 at Pt Temp 51.3 mmHg (35-45) H 06/12/17 18:35 ABG pO2 at Pt Temp 61.9 mmHg (70-100) L 06/12/17 18:35 ABG HCO3 28.1 meq/L (22-26) H 06/12/17 18:35 ABG O2 Sat (Measured) 90.6 % (90-98.9) 06/12/17 18:35 ABG O2 Content 16.2 % vol (15-22) 06/12/17 18:35 ABG Base Excess 2.2 meq/l (-2-2) H 06/12/17 18:35 Derrick Test Positive 06/12/17 18:35 O2 Delivery Device ventimask 06/12/17 18:35 Oxygen Flow Rate 40% 06/12/17 18:35 PEEP 0.0 cmH2O 06/12/17 18:35 Sodium 135 mmol/L (136-145) L 06/14/17 08:30 Potassium 5.3 mmol/L (3.5-5.1) H 06/14/17 08:30 Chloride 93 mmol/L (98-107) L 06/14/17 08:30 Carbon Dioxide 30 mmol/L (21-32) 06/14/17 08:30 Anion Gap 12 (8-16) 06/14/17 08:30 BUN 63 mg/dL (7-18) H D 06/14/17 08:30 Creatinine 1.9 mg/dL (0.7-1.3) H D 06/14/17 08:30 Creat Clearance w eGFR 24.32 (>60) 06/11/17 10:31 Random Glucose 146 mg/dL (74-106) H 06/14/17 08:30 Lactic Acid 0.8 mmol/L (0.4-2.0) 06/12/17 15:45 Calcium 8.3 mg/dL (8.5-10.1) L 06/14/17 08:30 Total Bilirubin 0.4 mg/dL (0.2-1.0) 06/11/17 10:31 AST 39 U/L (15-37) H D 06/11/17 10:31 ALT 24 U/L (12-78) D 06/11/17 10:31 Alkaline Phosphatase 47 U/L (45-117) D 06/11/17 10:31 Creatine Kinase 174 IU/L (39-308) 06/11/17 10:31 Creatine Kinase Index 1.3 % (0.0-5.0) 06/11/17 10:31 CK-MB (CK-2) 2.379 ng/mL (0.5-3.6) 06/11/17 10:31 Troponin I 0.02 ng/ml (0.00-0.05) 06/11/17 10:31 Total Protein 6.3 g/dl (6.4-8.2) L 06/11/17 10:31 Albumin 2.5 g/dl (3.4-5.0) L D 06/11/17 10:31 Urine Color Yellow 06/11/17 13:14 Urine Appearance Slcloudy 06/11/17 13:14 Urine pH 5.0 (5.0-8.0) D 06/11/17 13:14 Ur Specific [place] 1.020 (1.005-1.025) 06/11/17 13:14 Urine Protein 1+ (NEGATIVE) H 06/11/17 13:14 Urine Glucose (UA) Negative (NEGATIVE) 06/11/17 13:14 Urine Ketones Negative (NEGATIVE) 06/11/17 13:14 Urine Blood Negative (NEGATIVE) 06/11/17 13:14 Urine Nitrite Negative (NEGATIVE) 06/11/17 13:14 Urine Bilirubin Negative (NEGATIVE) 06/11/17 13:14 Urine Urobilinogen Negative mg/dL (0.2-1.0) 06/11/17 13:14 Urine RBC None /hpf (0-3) 06/11/17 13:14 Urine WBC 1 /hpf (3-5) 06/11/17 13:14 Ur Epithelial Cells Rare /hpf (FEW) 06/11/17 13:14 Urine Bacteria Rare /hpf (NONE SEEN) 06/11/17 13:14 Hyaline Casts 1 /lpf 06/11/17 13:14 Urine Mucus Rare 06/11/17 13:14 Active Medications Generic Name Dose Route Start Last Admin Trade Name Freq PRN Reason Stop Dose Admin Acetaminophen 650 mg 06/11/17 20:58 06/12/17 02:07 Tylenol - PO 650 mg Q4H PRN Administration FEVER OR PAIN Albuterol Sulfate 1 amp 06/13/17 10:37 Ventolin 0.083% Nebulizer Soln - NEB Q4H PRN SHORT OF BREATH/WHEEZING Alprazolam 1 mg 06/11/17 20:59 06/13/17 21:12 Xanax - PO 1 mg Q8H PRN Administration ANXIETY Aspirin 325 mg 06/12/17 10:00 06/14/17 10:53 Asa - PO 325 mg DAILY [facility] Administration Atorvastatin Calcium 20 mg 06/11/17 22:00 06/13/17 21:08 Lipitor - PO 20 mg HS [facility] Administration Budesonide/Formoterol Fumarate 2 puff 06/13/17 11:00 06/14/17 10:51 Symbicort 160/4.5mcg - IH 2 puff BID [facility] Administration Diltiazem HCl 300 mg 06/12/17 10:00 06/14/17 10:53 Cardizem Cd - PO 300 mg DAILY [facility] Administration Heparin Sodium (Porcine) 5,000 unit 06/12/17 10:00 06/14/17 10:53 Heparin - SQ 5,000 unit BID [facility] Administration Piperacillin Sod/Tazobactam 50 mls @ 100 mls/hr 06/12/17 15:00 06/14/17 10:56 Sod 2.25 gm/ Dextrose IVPB 100 mls/hr Q8H-IV [facility] Administration Protocol Methylprednisolone Sodium Succinate 80 mg 06/13/17 18:00 06/14/17 10:53 Solu-Medrol - IVPB 80 mg Q8H-IV [facility] Administration Tiotropium [place] 1 puff 06/13/17 10:00 06/14/17 10:49 Spiriva - IH 1 puff DAILY [facility] Administration Valsartan 160 mg 06/12/17 10:00 06/14/17 10:53 Diovan - PO 160 mg DAILY [facility] Administration IMAGING: CXR - No cardiopulmonary pathology ASSESSMENT/PLAN: Pt is a 71yo M with PMHx of COPD, CAD, CVA who presented w/ gradual onset SOB + productive cough, recent fevers/chills/headache/diarrhea admitted for likely COPD Exacerbation. # Acute COPD Exacerbation - secondary to likely viral infection, unlikely PNA - ABG shows likely chronic, compensated respiratory acidosis - On IV Solumedrol 100mg q8H - can taper steroids - Continue Albuterol Neb Q4 PRN, avoid LINSEY bc patient already on LAMA - Continue O2 as needed - Continue BIPAP at 35% as needed - Continue home Spiriva + Symbicort - Pt still on Zosyn, continue until tmrw as per ID # +SIRS - unknown source - UA negative, Blood cx neg to date - If workup is negative, likely related to ?viral illness - F/u CBC, Temp Rest as per Primary. We will continue to follow the patient. Discussed w/ Dr Kim. Linnea Mary MD - PGY1 Visit type - Emergency Visit Emergency Visit: No - New Patient This patient is new to me today: No - Critical Care Critical Care patient: No - Discharge Referral Referred to [facility] No
--- NOTE | 2017-06-14 13:51 | PN ---
Teaching Attending Note Name of Resident: Linnea Mary ATTENDING PHYSICIAN STATEMENT I saw and evaluated the patient. I reviewed the resident's note and discussed the case with the resident. I agree with the resident's findings and plan as documented. PULMONARY ALERT,FEELING BETTER,LESS CONGESTED,+COUGH IMP Acute Exacerbation of COPD (?) Viral Illness No Radiographic evidence of PNA Acute on Chronic Bronchitis SIRS O2 dependent COPD TAPER IV Medrol O2 as needed BD TX ABX per ID NIPPV if needed for WOB LAMA/LABA/ICS -> Avoid LINSEY VTE prophylaxis DR TINSLEY Problem List - Problems (1) Sepsis Code(s): A41.9 - SEPSIS, UNSPECIFIED ORGANISM Qualifiers: Sepsis type: sepsis due to unspecified organism Qualified Code(s): A41.9 - Sepsis, unspecified organism (2) Weakness Code(s): R53.1 - WEAKNESS (3) Acute on chronic respiratory failure with hypoxemia Code(s): J96.21 - ACUTE AND CHRONIC RESPIRATORY FAILURE WITH HYPOXIA (4) COPD (chronic obstructive pulmonary disease) Code(s): J44.9 - CHRONIC OBSTRUCTIVE PULMONARY DISEASE, UNSPECIFIED (5) SIRS (systemic inflammatory response syndrome) Code(s): R65.10 - SIRS OF NON-INFECTIOUS ORIGIN W/O ACUTE ORGAN DYSFUNCTION
--- NOTE | 2017-06-14 15:00 | PN ---
Progress Note, Physician History of Present Illness: patient doing well no issues - Current Medication List Current Medications: Active Medications Acetaminophen (Tylenol -) 650 mg PO Q4H PRN PRN Reason: FEVER OR PAIN Last Admin: 06/12/17 02:07 Dose: 650 mg Albuterol Sulfate (Ventolin 0.083% Nebulizer Soln -) 1 amp NEB Q4H PRN PRN Reason: SHORT OF BREATH/WHEEZING Albuterol Sulfate (Ventolin Hfa Inhaler -) 2 puff IH Q4H PRN PRN Reason: SHORT OF BREATH/WHEEZING Alprazolam (Xanax -) 1 mg PO Q8H PRN PRN Reason: ANXIETY Last Admin: 06/13/17 21:12 Dose: 1 mg Aspirin (Asa -) 325 mg PO DAILY [facility] Last Admin: 06/14/17 10:53 Dose: 325 mg Atorvastatin Calcium (Lipitor -) 20 mg PO HS [facility] Last Admin: 06/13/17 21:08 Dose: 20 mg Budesonide/Formoterol Fumarate (Symbicort 160/4.5mcg -) 2 puff IH BID [facility] Last Admin: 06/14/17 10:51 Dose: 2 puff Diltiazem HCl (Cardizem Cd -) 300 mg PO DAILY [facility] Last Admin: 06/14/17 10:53 Dose: 300 mg Heparin Sodium (Porcine) (Heparin -) 5,000 unit SQ BID [facility] Last Admin: 06/14/17 10:53 Dose: 5,000 unit Piperacillin Sod/Tazobactam (Sod 2.25 gm/ Dextrose) 50 mls @ 100 mls/hr IVPB Q8H-IV [facility] PRN Reason: Protocol Last Admin: 06/14/17 10:56 Dose: 100 mls/hr Methylprednisolone Sodium Succinate (Solu-Medrol -) 60 mg IVPB Q8H-IV [facility] Tiotropium [place] (Spiriva -) 1 puff IH DAILY [facility] Last Admin: 06/14/17 10:49 Dose: 1 puff Valsartan (Diovan -) 160 mg PO DAILY [facility] Last Admin: 06/14/17 10:53 Dose: 160 mg - Objective Vital Signs: Vital Signs Temperature 97.5 F L 06/14/17 09:00 Pulse Rate 72 06/14/17 13:45 Respiratory Rate 20 06/14/17 09:00 Blood Pressure 176/84 09/29/17 09:00 O2 Sat by Pulse Oximetry (%) 93 L 06/14/17 13:45 Constitutional: Yes: No Distress, Calm Cardiovascular: Yes: Regular Rate and Rhythm Respiratory: Yes: Cough, On Nasal O2 Gastrointestinal: Yes: Normal Bowel Sounds, Soft Musculoskeletal: Yes: WNL Extremities: Yes: Other Neurological: Yes: Alert, Oriented Psychiatric: Yes: Alert, Oriented Labs: CBC, BMP 06/14/17 08:30 06/14/17 08:30 Assessment/Plan copd exacerebration r/o pneumonia r/o paralytic ileus constipation abd pain plan continue abx for now cx negative still with some cough will evaluate tomorrow and decide about the abx
[2017-06-14] MEDS: ATORVASTATIN CA 20 MG TABLET (FP) PO SCH (21:36)
[2017-06-14] MEDS: ALPRAZolam 2 MG TABLET PO PRN (22:41)
[2017-06-15] MEDS ORDERED: PIPERACILLIN/TAZOBACTAM 2.25 GM VIAL IVPB ONE ×3 (02:03→17:11)
[2017-06-15] MEDS ORDERED: DEXTROSE 5%-WATER - 50 ML IVPB ONE ×3 (02:03→17:12)
[2017-06-15] MEDS: PIPERACILLIN/TAZOB 2.25 GM 2.25 GM in DEXTROSE 5%-WATER - 50 ML IVPB SCH ×3 (02:11→17:21)
[2017-06-15] MEDS: methylPREDNISolone NA SUCC 40 MG/1 ML VIAL IVPB SCH ×3 (02:11→17:22)
[2017-06-15] MEDS: ALBUTEROL SO4 18 GM HFA INHALER IH PRN ×2 (05:18→21:42)
--- NOTE | 2017-06-15 08:59 | PN ---
Progress Note, Physician Chief Complaint: Feels better,SOB persists - Current Medication List Current Medications: Active Medications Acetaminophen (Tylenol -) 650 mg PO Q4H PRN PRN Reason: FEVER OR PAIN Last Admin: 06/12/17 02:07 Dose: 650 mg Albuterol Sulfate (Ventolin 0.083% Nebulizer Soln -) 1 amp NEB Q4H PRN PRN Reason: SHORT OF BREATH/WHEEZING Albuterol Sulfate (Ventolin Hfa Inhaler -) 2 puff IH Q4H PRN PRN Reason: SHORT OF BREATH/WHEEZING Last Admin: 06/15/17 05:18 Dose: 2 puff Alprazolam (Xanax -) 1 mg PO Q8H PRN PRN Reason: ANXIETY Last Admin: 06/14/17 22:41 Dose: 1 mg Aspirin (Asa -) 325 mg PO DAILY [facility] Last Admin: 06/14/17 10:53 Dose: 325 mg Atorvastatin Calcium (Lipitor -) 20 mg PO HS [facility] Last Admin: 06/14/17 21:36 Dose: 20 mg Budesonide/Formoterol Fumarate (Symbicort 160/4.5mcg -) 2 puff IH BID [facility] Last Admin: 06/14/17 21:36 Dose: 2 puff Diltiazem HCl (Cardizem Cd -) 300 mg PO DAILY [facility] Last Admin: 06/14/17 10:53 Dose: 300 mg Heparin Sodium (Porcine) (Heparin -) 5,000 unit SQ BID [facility] Last Admin: 06/14/17 21:36 Dose: 5,000 unit Piperacillin Sod/Tazobactam (Sod 2.25 gm/ Dextrose) 50 mls @ 100 mls/hr IVPB Q8H-IV [facility] PRN Reason: Protocol Last Admin: 06/15/17 02:11 Dose: 100 mls/hr Methylprednisolone Sodium Succinate (Solu-Medrol -) 60 mg IVPB Q8H-IV [facility] Last Admin: 06/15/17 02:11 Dose: 60 mg Tiotropium [place] (Spiriva -) 1 puff IH DAILY [facility] Last Admin: 06/14/17 10:49 Dose: 1 puff Valsartan (Diovan -) 160 mg PO DAILY [facility] Last Admin: 06/14/17 10:53 Dose: 160 mg - Objective Vital Signs: Vital Signs Temperature 98.3 F 06/15/17 06:42 Pulse Rate 82 06/15/17 06:42 Respiratory Rate 20 06/15/17 06:42 Blood Pressure 160/83 06/15/17 06:42 O2 Sat by Pulse Oximetry (%) 91 L 06/14/17 22:00 Constitutional: Yes: Mild Distress Eyes: Yes: WNL HENT: Yes: WNL Neck: Yes: WNL Cardiovascular: Yes: WNL Respiratory: Yes: On Nasal O2, Poor Air Entry Gastrointestinal: Yes: WNL ...Rectal Exam: Yes: WNL Genitourinary: Yes: Incontinence Breast(s): Yes: WNL Musculoskeletal: Yes: Muscle Weakness Edema: No Peripheral Pulses WNL: Yes Neurological: Yes: Alert ...Motor Strength: RUE (S/p CVA) Labs: CBC, BMP 06/14/17 08:30 06/14/17 08:30 Assessment/Plan Continue same trt
[2017-06-15] MEDS: ALBUTEROL SO4 0.083% IH SOL 2.5 MG/3 ML VIAL.NEB. NEB PRN (09:00)
[2017-06-15] MEDS ORDERED: PT OWN MED DRAWER 7, Y5N ONE ×2 (09:06→21:38)
[2017-06-15] MEDS: ASPIRIN 325 MG TABLET PO SCH (09:27)
[2017-06-15] MEDS: VALSARTAN 160 MG TABLET (UD) PO SCH (09:29)
[2017-06-15] MEDS: HEPARIN NA (PORCINE) 5,000 UNITS/ML 1ML VIAL SQ SCH ×2 (09:29→21:42)
[2017-06-15] MEDS: TIOTROPIUM BROMIDE 18 MCG/INH (DEVICE W/ 5 CAPSULES) IH SCH (09:37)
[2017-06-15] MEDS: BUDESONIDE/FORMETEROL FUMARATE 160/4.5 mcg INHALER IH SCH ×2 (09:39→21:41)
--- NOTE | 2017-06-15 13:27 | PN ---
Progress Note, Physician History of Present Illness: Pt seen and examined. chart, labs, imaging results reviewed. Pt states he feels well, no productive cough, afebrile. Had BM last night. - Current Medication List Current Medications: Active Medications Acetaminophen (Tylenol -) 650 mg PO Q4H PRN PRN Reason: FEVER OR PAIN Last Admin: 06/12/17 02:07 Dose: 650 mg Albuterol Sulfate (Ventolin 0.083% Nebulizer Soln -) 1 amp NEB Q4H PRN PRN Reason: SHORT OF BREATH/WHEEZING Last Admin: 06/15/17 09:00 Dose: 1 amp Albuterol Sulfate (Ventolin Hfa Inhaler -) 2 puff IH Q4H PRN PRN Reason: SHORT OF BREATH/WHEEZING Last Admin: 06/15/17 05:18 Dose: 2 puff Alprazolam (Xanax -) 1 mg PO Q8H PRN PRN Reason: ANXIETY Last Admin: 06/14/17 22:41 Dose: 1 mg Aspirin (Asa -) 325 mg PO DAILY [facility] Last Admin: 06/15/17 09:27 Dose: 325 mg Atorvastatin Calcium (Lipitor -) 20 mg PO HS [facility] Last Admin: 06/14/17 21:36 Dose: 20 mg Budesonide/Formoterol Fumarate (Symbicort 160/4.5mcg -) 2 puff IH BID [facility] Last Admin: 06/15/17 09:39 Dose: 2 puff Diltiazem HCl (Cardizem Cd -) 300 mg PO DAILY [facility] Last Admin: 06/15/17 09:28 Dose: 300 mg Heparin Sodium (Porcine) (Heparin -) 5,000 unit SQ BID [facility] Last Admin: 06/15/17 09:29 Dose: 5,000 unit Piperacillin Sod/Tazobactam (Sod 2.25 gm/ Dextrose) 50 mls @ 100 mls/hr IVPB Q8H-IV [facility] PRN Reason: Protocol Last Admin: 06/15/17 09:40 Dose: 100 mls/hr Methylprednisolone Sodium Succinate (Solu-Medrol -) 60 mg IVPB Q8H-IV [facility] Last Admin: 06/15/17 09:35 Dose: 60 mg Tiotropium [place] (Spiriva -) 1 puff IH DAILY [facility] Last Admin: 06/15/17 09:37 Dose: 1 puff Valsartan (Diovan -) 160 mg PO DAILY [facility] Last Admin: 06/15/17 09:29 Dose: 160 mg - Objective Vital Signs: Vital Signs Temperature 98.1 F 06/15/17 08:00 Pulse Rate 101 H 06/15/17 12:49 Respiratory Rate 20 06/15/17 08:00 Blood Pressure 153/74 06/15/17 08:00 O2 Sat by Pulse Oximetry (%) 92 L 06/15/17 12:49 Constitutional: Yes: No Distress, Calm, Other (on O2 nasal cannula) HENT: Yes: WNL Neck: Yes: Supple Cardiovascular: Yes: Regular Rate and Rhythm Respiratory: Yes: Poor Air Entry Gastrointestinal: Yes: Normal Bowel Sounds, Soft Genitourinary: Yes: WNL Extremities: Yes: WNL Integumentary: Yes: Rash (mild upper chest rash) Neurological: Yes: Alert, Oriented Labs: CBC, BMP 06/14/17 08:30 06/14/17 08:30 - ....Imaging Chest X-ray: Report Reviewed Problem List - Problems (1) Acute on chronic respiratory failure with hypoxemia Code(s): J96.21 - ACUTE AND CHRONIC RESPIRATORY FAILURE WITH HYPOXIA (2) COPD (chronic obstructive pulmonary disease) Code(s): J44.9 - CHRONIC OBSTRUCTIVE PULMONARY DISEASE, UNSPECIFIED (3) SIRS (systemic inflammatory response syndrome) Code(s): R65.10 - SIRS OF NON-INFECTIOUS ORIGIN W/O ACUTE ORGAN DYSFUNCTION (4) Weakness Code(s): R53.1 - WEAKNESS Assessment/Plan Acute COPD Exacerbation Possibe Pneumonitis Leukocytosis Mild rash - pt afebrile, wbc now normal, clinically improved -d/c zosyn for now and closely monitor continue supportive care
--- NOTE | 2017-06-15 13:32 | PN ---
Progress Note (short form) - Note Progress Note: PULMONARY SUBJECTIVE IMPROVEMENT VSS/AFEBRILE ANICTERIC SCATTERED RHONCHI S1S2 BS+ NO EDEMA LABS/MEDS/RADIOGRAPHS/NOTES REVIEWED Acute Exacerbation of COPD Acute on Chronic Bronchitis SIRS O2 dependent COPD TAPER IV Medrol O2 as needed BD TX ABX per ID NIPPV if needed for WOB LAMA/LABA/ICS -> Avoid LINSEY VTE prophylaxsis Jaya BAEZ MD
[2017-06-15 16:30] LABS: MCH 30.3 pg (25.7-33.7); MCHC 32.9 g/dl (32.0-35.9); MEAN PLT VOLUME 8.2 fl (7.5-11.1); PLATELET COUNT 301 K/MM3 (134-434); RDW 13.2 % (11.9-15.9); WHITE BLOOD COUNT 6.8 K/mm3 (4.0-10.0)
[2017-06-15 16:57] LABS: ALBUMIN 2.3 g/dl (3.4-5.0); ANION GAP 12 (8-16); BILIRUBIN,TOTAL 0.2 mg/dL (0.2-1.0); CALCIUM 8.2 mg/dL (8.5-10.1); CO2 31 mmol/L (21-32); CREATININE 2.5 mg/dL (0.7-1.3); GLUCOSE,RANDOM 281 mg/dL (74-106); SGOT/AST 32 U/L (15-37); SGPT/ALT 38 U/L (12-78); TOT PROT 5.9 g/dl (6.4-8.2)
[2017-06-15 16:58] LABS: ALK PHOS 40 U/L (45-117)
[2017-06-15 17:37] LABS: PLATELET ESTIMATE ADEQUATE (NORMAL); TOTAL CELLS COUNTED 100
[2017-06-15] MEDS: ATORVASTATIN CA 20 MG TABLET (FP) PO SCH (21:41)
[2017-06-15] MEDS: ALPRAZolam 2 MG TABLET PO PRN (21:41)
[2017-06-16] MEDS ORDERED: PIPERACILLIN/TAZOBACTAM 2.25 GM VIAL IVPB ONE ×2 (01:03→09:50)
[2017-06-16] MEDS ORDERED: DEXTROSE 5%-WATER - 50 ML IVPB ONE (01:03)
[2017-06-16] MEDS: methylPREDNISolone NA SUCC 40 MG/1 ML VIAL IVPB SCH ×3 (01:24→17:15)
[2017-06-16] MEDS: PIPERACILLIN/TAZOB 2.25 GM 2.25 GM in DEXTROSE 5%-WATER - 50 ML IVPB SCH ×2 (01:36→09:55)
[2017-06-16] MEDS ORDERED: PT OWN MED DRAWER 7, Y5N ONE ×2 (09:50→21:35)
[2017-06-16] MEDS: TIOTROPIUM BROMIDE 18 MCG/INH (DEVICE W/ 5 CAPSULES) IH SCH (09:53)
[2017-06-16] MEDS: BUDESONIDE/FORMETEROL FUMARATE 160/4.5 mcg INHALER IH SCH ×2 (09:53→21:36)
[2017-06-16] MEDS: VALSARTAN 160 MG TABLET (UD) PO SCH (09:54)
[2017-06-16] MEDS: HEPARIN NA (PORCINE) 5,000 UNITS/ML 1ML VIAL SQ SCH ×2 (09:54→21:17)
[2017-06-16] MEDS: ASPIRIN 325 MG TABLET PO SCH (09:54)
[2017-06-16] MEDS: ALPRAZolam 2 MG TABLET PO PRN (10:21)
[2017-06-16] MEDS: ALBUTEROL SO4 0.083% IH SOL 2.5 MG/3 ML VIAL.NEB. NEB PRN (10:28)
--- NOTE | 2017-06-16 12:17 | PN ---
Progress Note, Physician Chief Complaint: SOB less History of Present Illness: Admitted with fever and exacerbation of COPD Feels better - Current Medication List Current Medications: Active Medications Acetaminophen (Tylenol -) 650 mg PO Q4H PRN PRN Reason: FEVER OR PAIN Last Admin: 06/12/17 02:07 Dose: 650 mg Albuterol Sulfate (Ventolin 0.083% Nebulizer Soln -) 1 amp NEB Q4H PRN PRN Reason: SHORT OF BREATH/WHEEZING Last Admin: 06/16/17 10:28 Dose: 1 amp Albuterol Sulfate (Ventolin Hfa Inhaler -) 2 puff IH Q4H PRN PRN Reason: SHORT OF BREATH/WHEEZING Last Admin: 06/15/17 21:42 Dose: 2 puff Alprazolam (Xanax -) 1 mg PO Q8H PRN PRN Reason: ANXIETY Last Admin: 06/16/17 10:21 Dose: 1 mg Aspirin (Asa -) 325 mg PO DAILY [facility] Last Admin: 06/16/17 09:54 Dose: 325 mg Atorvastatin Calcium (Lipitor -) 20 mg PO HS [facility] Last Admin: 06/15/17 21:41 Dose: 20 mg Budesonide/Formoterol Fumarate (Symbicort 160/4.5mcg -) 2 puff IH BID [facility] Last Admin: 06/16/17 09:53 Dose: 2 puff Diltiazem HCl (Cardizem Cd -) 300 mg PO DAILY [facility] Last Admin: 06/16/17 09:54 Dose: 300 mg Heparin Sodium (Porcine) (Heparin -) 5,000 unit SQ BID [facility] Last Admin: 06/16/17 09:54 Dose: 5,000 unit Piperacillin Sod/Tazobactam (Sod 2.25 gm/ Dextrose) 50 mls @ 100 mls/hr IVPB Q8H-IV [facility] PRN Reason: Protocol Last Admin: 06/16/17 09:55 Dose: 100 mls/hr Methylprednisolone Sodium Succinate (Solu-Medrol -) 60 mg IVPB Q8H-IV [facility] Last Admin: 06/16/17 09:55 Dose: 60 mg Tiotropium [place] (Spiriva -) 1 puff IH DAILY [facility] Last Admin: 06/16/17 09:53 Dose: 1 puff Valsartan (Diovan -) 160 mg PO DAILY [facility] Last Admin: 06/16/17 09:54 Dose: 160 mg - Objective Vital Signs: Vital Signs Temperature 98.1 F 06/16/17 02:00 Pulse Rate 112 H 06/16/17 10:27 Respiratory Rate 20 06/16/17 02:00 Blood Pressure 153/81 06/16/17 02:00 O2 Sat by Pulse Oximetry (%) 93 L 06/16/17 10:27 Constitutional: Yes: Mild Distress Eyes: Yes: WNL HENT: Yes: WNL Neck: Yes: WNL Cardiovascular: Yes: WNL Respiratory: Yes: On Nasal O2, Poor Air Entry Gastrointestinal: Yes: Normal Bowel Sounds ...Rectal Exam: Yes: Deferred Genitourinary: Yes: WNL Musculoskeletal: Yes: Muscle Weakness Edema: No Neurological: Yes: Alert Psychiatric: Yes: Alert Labs: CBC, BMP 06/15/17 16:00 06/15/17 16:00 Assessment/Plan Cr went up 2.5 ,will get nephrology consult Dr Drew
[2017-06-16] MEDS ORDERED: guaiFENesin 200 MG/10 ML 10 ML UNIT-DOSE CUPS PO PRN (12:42)
--- NOTE | 2017-06-16 12:47 | PN ---
Progress Note (short form) - Note Progress Note: PULMONARY SUBJECTIVE IMPROVEMENT VSS/AFEBRILE ANICTERIC SCATTERED RHONCHI S1S2 BS+ NO EDEMA LABS/MEDS/RADIOGRAPHS/NOTES REVIEWED Acute Exacerbation of COPD Acute on Chronic Bronchitis SIRS O2 dependent COPD Increased CR Taper IV Medrol O2 as needed BD TX NIPPV PRN LAMA/LABA/ICS -> Avoid LINSEY VTE prophylaxsis renal eval/avoid nephrotoxic agents will hold zosyn for now Jaya BAEZ MD
--- NOTE | 2017-06-16 14:16 | PN ---
Progress Note, Physician History of Present Illness: Pt states he feels well. Denies shortness of breath or persistent productive cough. Remains afebrile and without any specific control - Current Medication List Current Medications: Active Medications Acetaminophen (Tylenol -) 650 mg PO Q4H PRN PRN Reason: FEVER OR PAIN Last Admin: 06/12/17 02:07 Dose: 650 mg Albuterol Sulfate (Ventolin 0.083% Nebulizer Soln -) 1 amp NEB Q4H PRN PRN Reason: SHORT OF BREATH/WHEEZING Last Admin: 06/16/17 10:28 Dose: 1 amp Albuterol Sulfate (Ventolin Hfa Inhaler -) 2 puff IH Q4H PRN PRN Reason: SHORT OF BREATH/WHEEZING Last Admin: 06/15/17 21:42 Dose: 2 puff Alprazolam (Xanax -) 1 mg PO Q8H PRN PRN Reason: ANXIETY Last Admin: 06/16/17 10:21 Dose: 1 mg Aspirin (Asa -) 325 mg PO DAILY [facility] Last Admin: 06/16/17 09:54 Dose: 325 mg Atorvastatin Calcium (Lipitor -) 20 mg PO HS [facility] Last Admin: 06/15/17 21:41 Dose: 20 mg Budesonide/Formoterol Fumarate (Symbicort 160/4.5mcg -) 2 puff IH BID [facility] Last Admin: 06/16/17 09:53 Dose: 2 puff Diltiazem HCl (Cardizem Cd -) 300 mg PO DAILY [facility] Last Admin: 06/16/17 09:54 Dose: 300 mg Guaifenesin (Robitussin -) 10 ml PO Q8H PRN PRN Reason: COUGH Heparin Sodium (Porcine) (Heparin -) 5,000 unit SQ BID [facility] Last Admin: 06/16/17 09:54 Dose: 5,000 unit Piperacillin Sod/Tazobactam (Sod 2.25 gm/ Dextrose) 50 mls @ 100 mls/hr IVPB Q8H-IV [facility] PRN Reason: Protocol Last Admin: 06/16/17 09:55 Dose: 100 mls/hr Methylprednisolone Sodium Succinate (Solu-Medrol -) 20 mg IVPB Q8H-IV [facility] Tiotropium [place] (Spiriva -) 1 puff IH DAILY [facility] Last Admin: 10/01/17 09:53 Dose: 1 puff Valsartan (Diovan -) 160 mg PO DAILY [facility] Last Admin: 06/16/17 09:54 Dose: 160 mg - Objective Vital Signs: Vital Signs Temperature 98.0 F 06/16/17 08:00 Pulse Rate 88 06/16/17 10:30 Respiratory Rate 20 06/16/17 10:30 Blood Pressure 151/88 06/16/17 10:30 O2 Sat by Pulse Oximetry (%) 93 L 06/16/17 10:27 Constitutional: Yes: No Distress, Calm HENT: Yes: WNL Neck: Yes: Supple Cardiovascular: Yes: Regular Rate and Rhythm Respiratory: Yes: Diminished (slightly in Rt middle lung field) Gastrointestinal: Yes: Normal Bowel Sounds, Soft Integumentary: Yes: Other (less erythematous rash on chest) Neurological: Yes: Alert Psychiatric: Yes: WNL Labs: CBC, BMP 06/15/17 16:00 06/15/17 16:00 Problem List - Problems (1) Acute on chronic respiratory failure with hypoxemia Code(s): J96.21 - ACUTE AND CHRONIC RESPIRATORY FAILURE WITH HYPOXIA (2) COPD (chronic obstructive pulmonary disease) Code(s): J44.9 - CHRONIC OBSTRUCTIVE PULMONARY DISEASE, UNSPECIFIED (3) SIRS (systemic inflammatory response syndrome) Code(s): R65.10 - SIRS OF NON-INFECTIOUS ORIGIN W/O ACUTE ORGAN DYSFUNCTION (4) Weakness Code(s): R53.1 - WEAKNESS Assessment/Plan COPD Exacerbation Possibe Pneumonitis CKD Resolved leukocytosis Mild rash on chest improving, possible allergy to zosyn -- suggest close monitoring off antibiotics for now, zosyn d/c'd --consider repeat CXR -- currently appears stable, continue supportive care
[2017-06-16] MEDS: ALBUTEROL SO4 18 GM HFA INHALER IH PRN (21:19)
[2017-06-16] MEDS: ATORVASTATIN CA 20 MG TABLET (FP) PO SCH (21:19)
[2017-06-17] MEDS: methylPREDNISolone NA SUCC 40 MG/1 ML VIAL IVPB SCH ×2 (02:40→10:11)
[2017-06-17] MEDS: ALPRAZolam 2 MG TABLET PO PRN ×2 (03:51→21:25)
--- NOTE | 2017-06-17 09:10 | PN ---
Progress Note, Physician Chief Complaint: Feels better History of Present Illness: Admitted with fever and cough Improving,on IV steroids and antibiotics Nephrology to evaluate Cr of 2.5 - Current Medication List Current Medications: Active Medications Acetaminophen (Tylenol -) 650 mg PO Q4H PRN PRN Reason: FEVER OR PAIN Last Admin: 06/12/17 02:07 Dose: 650 mg Albuterol Sulfate (Ventolin 0.083% Nebulizer Soln -) 1 amp NEB Q4H PRN PRN Reason: SHORT OF BREATH/WHEEZING Last Admin: 06/16/17 10:28 Dose: 1 amp Albuterol Sulfate (Ventolin Hfa Inhaler -) 2 puff IH Q4H PRN PRN Reason: SHORT OF BREATH/WHEEZING Last Admin: 06/16/17 21:19 Dose: 2 puff Alprazolam (Xanax -) 1 mg PO Q8H PRN PRN Reason: ANXIETY Last Admin: 06/17/17 03:51 Dose: 1 mg Aspirin (Asa -) 325 mg PO DAILY [facility] Last Admin: 06/16/17 09:54 Dose: 325 mg Atorvastatin Calcium (Lipitor -) 20 mg PO HS [facility] Last Admin: 06/16/17 21:19 Dose: 20 mg Budesonide/Formoterol Fumarate (Symbicort 160/4.5mcg -) 2 puff IH BID [facility] Last Admin: 06/16/17 21:36 Dose: 2 puff Diltiazem HCl (Cardizem Cd -) 300 mg PO DAILY [facility] Last Admin: 06/16/17 09:54 Dose: 300 mg Guaifenesin (Robitussin -) 10 ml PO Q8H PRN PRN Reason: COUGH Heparin Sodium (Porcine) (Heparin -) 5,000 unit SQ BID [facility] Last Admin: 06/16/17 21:17 Dose: 5,000 unit Piperacillin Sod/Tazobactam (Sod 2.25 gm/ Dextrose) 50 mls @ 100 mls/hr IVPB Q8H-IV [facility] PRN Reason: Protocol Last Admin: 06/16/17 09:55 Dose: 100 mls/hr Methylprednisolone Sodium Succinate (Solu-Medrol -) 20 mg IVPB Q8H-IV [facility] Last Admin: 06/17/17 02:40 Dose: 20 mg Tiotropium [place] (Spiriva -) 1 puff IH DAILY [facility] Last Admin: 06/16/17 09:53 Dose: 1 puff Valsartan (Diovan -) 160 mg PO DAILY [facility] Last Admin: 06/16/17 09:54 Dose: 160 mg - Objective Vital Signs: Vital Signs Temperature 98.0 F 06/17/17 05:30 Pulse Rate 69 06/17/17 05:30 Respiratory Rate 20 06/16/17 23:46 Blood Pressure 149/68 06/17/17 05:30 O2 Sat by Pulse Oximetry (%) 95 06/16/17 21:00 Constitutional: Yes: No Distress Eyes: Yes: WNL HENT: Yes: WNL Neck: Yes: WNL Cardiovascular: Yes: WNL Respiratory: Yes: On Nasal O2 Gastrointestinal: Yes: WNL ...Rectal Exam: Yes: WNL Genitourinary: Yes: WNL Musculoskeletal: Yes: Muscle Weakness Edema: No Peripheral Pulses WNL: Yes Integumentary: Yes: WNL Neurological: Yes: Alert, Pre-Existing Deficit Labs: CBC, BMP 06/15/17 16:00 06/15/17 16:00 Assessment/Plan Will discuss with Dr Johnson
[2017-06-17 09:16] LABS: MCHC 32.5 g/dl (32.0-35.9); MEAN CELL VOLUME 92.5 fl (80-96); MEAN PLT VOLUME 7.4 fl (7.5-11.1); PLATELET COUNT 327 K/MM3 (134-434); RDW 12.8 % (11.9-15.9); WHITE BLOOD COUNT 9.5 K/mm3 (4.0-10.0)
[2017-06-17 09:40] LABS: ALBUMIN 2.3 g/dl (3.4-5.0); ANION GAP 4 (8-16); CO2 37 mmol/L (21-32); CREATININE 1.6 mg/dL (0.7-1.3); MAGNESIUM 2.4 mg/dL (1.8-2.4); PHOSPHOROUS 3.3 mg/dL (2.5-4.9); SGOT/AST 77 U/L (15-37)
[2017-06-17 09:43] LABS: ALK PHOS 37 U/L (45-117); BILIRUBIN,TOTAL 0.4 mg/dL (0.2-1.0); SGPT/ALT 64 U/L (12-78)
[2017-06-17 09:56] LABS: GLUCOSE,RANDOM 310 mg/dL (74-106)
[2017-06-17 09:57] LABS: PLATELET ESTIMATE ADEQUATE (NORMAL); TOTAL CELLS COUNTED 100
[2017-06-17] MEDS ORDERED: PT OWN MED DRAWER 7, Y5N ONE (10:03)
[2017-06-17] MEDS: TIOTROPIUM BROMIDE 18 MCG/INH (DEVICE W/ 5 CAPSULES) IH SCH (10:06)
[2017-06-17] MEDS: BUDESONIDE/FORMETEROL FUMARATE 160/4.5 mcg INHALER IH SCH ×2 (10:06→21:25)
[2017-06-17] MEDS: HEPARIN NA (PORCINE) 5,000 UNITS/ML 1ML VIAL SQ SCH ×2 (10:08→21:24)
[2017-06-17] MEDS: ASPIRIN 325 MG TABLET PO SCH (10:08)
[2017-06-17] MEDS: VALSARTAN 160 MG TABLET (UD) PO SCH (10:09)
[2017-06-17 10:19] LABS: URINE CREATININE 64.2 mg/dL (20-370)
[2017-06-17 11:03] VITALS: BMI 21.3
--- NOTE | 2017-06-17 11:03 | CON.NEP ---
Consult Consult Specialty:: Nephrology Referred by:: Dr. Bui Reason for Consultation:: ANTONIO - History of Present Illness Chief Complaint: SOB History of Present Illness: This is a 71 year old gentleman with PMhx of COPD, CAD, CVA with right sided weakness who presented with SOB and found to have COPD exacerbation with ANTONIO With Cr of 2.6 (baseline 1.1 in 2015). Pt states that he was having difficulty breathing over the course of a week. Denies any change in urine output at home. Denies any nsaid use. No contrast exposure. Did have a trauma to his back that caused him to have flank pain. No CP, abd pain, diarrhea. No recent Abx use. - History Source History Provided By: Patient Limitations to Obtaining History: No Limitations - Past Medical History Cardio/Vascular: Yes: CAD Pulmonary: Yes: COPD - Alcohol/Substance Use Hx Alcohol Use: No - Smoking History Smoking history: Former smoker Have you smoked in the past 12 months: No Aproximately how many cigarettes per day: 0 If you are a former smoker, when did you quit?: over 30 years ago Home Medications - Allergies Allergies/Adverse Reactions: Allergies Allergy/AdvReac Type Severity Reaction Status Date / Time Penicillins Allergy Rash Verified 06/11/17 09:50 - Home Medications Home Medications: Ambulatory Orders Acetaminophen [Tylenol .Regular Strength -] 650 mg PO Q4H PRN #0 tablet Alprazolam [Xanax] 1 mg PO TID PRN #0 tablet 06/16/13 Aspirin [ASA -] 325 mg PO DAILY #0 tablet NS 06/16/13 Atorvastatin Ca [Lipitor] 20 mg PO HS #0 tablet 06/16/13 Diltiazem Cd [Cardizem Cd -] 300 mg PO DAILY #0 cap.cd.24h 06/16/13 Tiotropium [place] [Spiriva] 1 inh PO DAILY #1 inh 06/16/13 Valsartan/Hydrochlorothiazide [Valsartan-Hctz 160-12.5 mg Tab] 1 each PO DAILY 06/11/17 Budesonide/Formeterol Fumarate [SYMBICORT 160/4.5mcg -] 1 inh PO BID 06/13/17 Family Disease History - Family Disease History Family History: Unremarkable Review of Systems - Review of Systems Constitutional: reports: No Symptoms Eyes: reports: No Symptoms HENT: reports: No Symptoms Neck: reports: No Symptoms Cardiovascular: reports: Shortness of Breath. denies: Chest Pain, Edema, Palpitations Respiratory: reports: SOB, SOB on Exertion, Wheezing. denies: Cough, Orthopnea , PND Gastrointestinal: reports: No Symptoms Genitourinary: reports: No Symptoms Musculoskeletal: reports: No Symptoms Integumentary: reports: No Symptoms Neurological: reports: No Symptoms Endocrine: reports: No Symptoms Nephrology Consult - Height Height: 5 ft 8 in - Weight Weight: 140 lb 6.4 oz - BMI Body Mass Index (BMI): 21.3 - Lab Results CBC,BMP: CBC, BMP 06/17/17 09:00 06/17/17 09:00 Anion Gap: Anion Gap Anion Gap 4 (8-16) L 06/17/17 09:00 - Imaging Chest X-ray: Image Reviewed - Physical Examination Vital Signs: Vital Signs Temperature 98.0 F 06/17/17 09:26 Pulse Rate 86 06/17/17 09:26 Respiratory Rate 20 06/17/17 09:26 Blood Pressure 149/75 06/17/17 09:26 O2 Sat by Pulse Oximetry (%) 95 06/16/17 21:00 Constitutional: Yes: Well Nourished, No Distress, Calm Eyes: Yes: Conjunctiva Clear HENT: Yes: Atraumatic, Normocephalic Neck: Yes: Supple Cardiovascular: Yes: Regular Rate and Rhythm, S1, S2. No: Murmur, Rub Respiratory: Yes: Regular, Diminished, On Nasal O2. No: Rales, Rhonchi Gastrointestinal: Yes: Normal Bowel Sounds, Soft. No: Tenderness Renal/: No: Anuria, Bladder Distention, CVA Tenderness - Left, CVA Tenderness - Right, [place] Present Extremities: No: Cold, Cool, Cyanosis Edema: No Neurological: Yes: Alert, Oriented Problem List - Problems (1) Acute on chronic respiratory failure with hypoxemia Code(s): J96.21 - ACUTE AND CHRONIC RESPIRATORY FAILURE WITH HYPOXIA (2) COPD (chronic obstructive pulmonary disease) Code(s): J44.9 - CHRONIC OBSTRUCTIVE PULMONARY DISEASE, UNSPECIFIED (3) SIRS (systemic inflammatory response syndrome) Code(s): R65.10 - SIRS OF NON-INFECTIOUS ORIGIN W/O ACUTE ORGAN DYSFUNCTION (4) Sepsis Code(s): A41.9 - SEPSIS, UNSPECIFIED ORGANISM Qualifiers: Sepsis type: sepsis due to unspecified organism Qualified Code(s): A41.9 - Sepsis, unspecified organism; A41.9 - Sepsis, unspecified organism; A41.9 - Sepsis, unspecified organism (5) Weakness Code(s): R53.1 - WEAKNESS (6) ANTONIO (acute kidney injury) Code(s): N17.9 - ACUTE KIDNEY FAILURE, UNSPECIFIED Assessment/Plan 71 year old gentleman with PMhx of COPD, CAD, CVA with right sided weakness who presented with SOB and found to have COPD exacerbation with ANTONIO With Cr of 2.6 ( baseline 1.1 in 2015). #Acute Kidney Injury likely due to volume depletion Renal function with graudal improvement as a inpatient Urines studies show no hematuria or proteinuria FeNa was 0.48% indicating preserved tubular function BUN elevated likely due to steroids and not indicative of uremia continue isotonic saline for now Check Renal US to r/o hematoma/structural abnormalities of the kidney Trend BUN/Cr dialy dose all meds for Cr Cl less then 30 avoid nsaids, other nephrotoxins #COPD exacerbation continue steroids, o2 as per pulmonary supportive care Thank you Will follow Reymundo Johnson DO
--- NOTE | 2017-06-17 13:42 | PN ---
Progress Note, Physician History of Present Illness: patient doing well no issues has remained stable off of abx - Current Medication List Current Medications: Active Medications Acetaminophen (Tylenol -) 650 mg PO Q4H PRN PRN Reason: FEVER OR PAIN Last Admin: 06/12/17 02:07 Dose: 650 mg Albuterol Sulfate (Ventolin 0.083% Nebulizer Soln -) 1 amp NEB Q4H PRN PRN Reason: SHORT OF BREATH/WHEEZING Last Admin: 06/16/17 10:28 Dose: 1 amp Albuterol Sulfate (Ventolin Hfa Inhaler -) 2 puff IH Q4H PRN PRN Reason: SHORT OF BREATH/WHEEZING Last Admin: 06/16/17 21:19 Dose: 2 puff Alprazolam (Xanax -) 1 mg PO Q8H PRN PRN Reason: ANXIETY Last Admin: 06/17/17 03:51 Dose: 1 mg Aspirin (Asa -) 325 mg PO DAILY [facility] Last Admin: 06/17/17 10:08 Dose: 325 mg Atorvastatin Calcium (Lipitor -) 20 mg PO HS [facility] Last Admin: 06/16/17 21:19 Dose: 20 mg Budesonide/Formoterol Fumarate (Symbicort 160/4.5mcg -) 2 puff IH BID [facility] Last Admin: 06/17/17 10:06 Dose: 2 puff Diltiazem HCl (Cardizem Cd -) 300 mg PO DAILY [facility] Last Admin: 06/17/17 10:09 Dose: 300 mg Guaifenesin (Robitussin -) 10 ml PO Q8H PRN PRN Reason: COUGH Heparin Sodium (Porcine) (Heparin -) 5,000 unit SQ BID [facility] Last Admin: 06/17/17 10:08 Dose: 5,000 unit Piperacillin Sod/Tazobactam (Sod 2.25 gm/ Dextrose) 50 mls @ 100 mls/hr IVPB Q8H-IV [facility] PRN Reason: Protocol Last Admin: 06/16/17 09:55 Dose: 100 mls/hr Methylprednisolone Sodium Succinate (Solu-Medrol -) 20 mg IVPB Q8H-IV [facility] Last Admin: 06/17/17 10:11 Dose: 20 mg Tiotropium [place] (Spiriva -) 1 puff IH DAILY [facility] Last Admin: 06/17/17 10:06 Dose: 1 puff Valsartan (Diovan -) 160 mg PO DAILY [facility] Last Admin: 06/17/17 10:09 Dose: 160 mg - Objective Vital Signs: Vital Signs Temperature 98.0 F 06/17/17 09:26 Pulse Rate 82 06/17/17 10:55 Respiratory Rate 20 06/17/17 09:26 Blood Pressure 149/75 06/17/17 09:26 O2 Sat by Pulse Oximetry (%) 98 06/17/17 10:55 Constitutional: Yes: No Distress, Calm Eyes: Yes: Conjunctiva Clear Cardiovascular: Yes: Regular Rate and Rhythm Respiratory: Yes: Regular, CTA Bilaterally Gastrointestinal: Yes: Normal Bowel Sounds, Soft Musculoskeletal: Yes: Other Extremities: Yes: Other Neurological: Yes: Alert, Oriented Psychiatric: Yes: Alert, Oriented Labs: CBC, BMP 06/17/17 09:00 06/17/17 09:00 - ....Imaging Ultrasound: Report Reviewed, Image Reviewed Assessment/Plan copd exacerebration r/o pneumonia r/o paralytic ileus constipation abd pain plan stable off of abx continue as per rnal/primary
--- NOTE | 2017-06-17 16:58 | PN ---
Physical Exam: PULMONARY CONSULT SUBJECTIVE: Patient seen and examined. Pt has improved, less SOB, less coughing. Denies CP. OBJECTIVE: Vital Signs Period Temp Pulse Resp BP Sys/Ruiz Pulse Ox Last 24 Hr 98.0 F-98.4 F 69-89 16-21 136-149/68-77 94-98 GEN: AAOx3, NAD, Lying comfortably on NC 3L, Does not look ill HEENT: PERRLA, EOMi, No cervical LAD CV: Distant heart sounds, S1, S2, RRR LUNG: Decreased breath sounds throughout, no crackles ABD: Soft, NT, ND, normoactive BS MSK: RUE 4/5, RLE 4/5, LUE 5/5, LLE 5/5. R pedal edema 2+ NEURO: CN 2-12 intact, R sided muscle strength reduced (from prior CVA) Laboratory Last Values WBC 9.5 K/mm3 (4.0-10.0) D 06/17/17 09:00 RBC 4.20 M/mm3 (4.00-5.60) 06/17/17 09:00 Hgb 12.6 GM/dL (11.7-16.9) 06/17/17 09:00 Hct 38.9 % (35.4-49) 06/17/17 09:00 MCV 92.5 fl (80-96) 06/17/17 09:00 MCH 30.0 pg (25.7-33.7) 06/17/17 09:00 MCHC 32.5 g/dl (32.0-35.9) 06/17/17 09:00 RDW 12.8 % (11.9-15.9) 06/17/17 09:00 Plt Count 327 K/MM3 (134-434) 06/17/17 09:00 MPV 7.4 fl (7.5-11.1) L 06/17/17 09:00 Total Counted 100 06/17/17 09:00 Neutrophils % No Result Required. 06/17/17 09:00 Neutrophils % (Manual) 93 % (42.8-82.8) H* 06/17/17 09:00 Band Neuts % (Manual) 1 % (0-10) 06/15/17 16:00 Lymphocytes % No Result Required. 06/17/17 09:00 Lymphocytes % (Manual) 5 % (8-40) L D 06/17/17 09:00 Monocytes % 6.7 % (3.8-10.2) 06/11/17 10:31 Monocytes % (Manual) 2 % (3.8-10.2) L 06/17/17 09:00 Eosinophils % 0.7 % (0-4.5) 06/11/17 10:31 Basophils % 0.0 % (0-2.0) 06/11/17 10:31 Other Cell Type 06/15/17 16:00 Platelet Estimate Adequate (NORMAL) 06/17/17 09:00 Platelet Comment Few large plts 06/15/17 16:00 Puncture Site Right radial 06/12/17 18:35 ABG pH 7.36 (7.35-7.45) 06/12/17 18:35 ABG pCO2 at Pt Temp 51.3 mmHg (35-45) H 06/12/17 18:35 ABG pO2 at Pt Temp 61.9 mmHg (70-100) L 06/12/17 18:35 ABG HCO3 28.1 meq/L (22-26) H 06/12/17 18:35 ABG O2 Sat (Measured) 90.6 % (90-98.9) 06/12/17 18:35 ABG O2 Content 16.2 % vol (15-22) 06/12/17 18:35 ABG Base Excess 2.2 meq/l (-2-2) H 06/12/17 18:35 Derrick Test Positive 06/12/17 18:35 O2 Delivery Device ventimask 06/12/17 18:35 Oxygen Flow Rate 40% 06/12/17 18:35 PEEP 0.0 cmH2O 06/12/17 18:35 Sodium 141 mmol/L (136-145) 06/17/17 09:00 Potassium 4.6 mmol/L (3.5-5.1) 06/17/17 09:00 Chloride 100 mmol/L (98-107) 06/17/17 09:00 Carbon Dioxide 37 mmol/L (21-32) H 06/17/17 09:00 Anion Gap 4 (8-16) L 06/17/17 09:00 BUN 63 mg/dL (7-18) H 06/17/17 09:00 Creatinine 1.6 mg/dL (0.7-1.3) H D 06/17/17 09:00 Creat Clearance w eGFR 42.58 (>60) 06/17/17 09:00 Random Glucose 310 mg/dL (74-106) H* 06/17/17 09:00 Lactic Acid 0.8 mmol/L (0.4-2.0) 06/12/17 15:45 Uric Acid 5.0 mg/dL (2.6-7.2) 06/17/17 09:00 Calcium 8.0 mg/dL (8.5-10.1) L 06/17/17 09:00 Phosphorus 3.3 mg/dL (2.5-4.9) 06/17/17 09:00 Magnesium 2.4 mg/dL (1.8-2.4) 06/17/17 09:00 Total Bilirubin 0.4 mg/dL (0.2-1.0) D 06/17/17 09:00 AST 77 U/L (15-37) H D 06/17/17 09:00 ALT 64 U/L (12-78) D 06/17/17 09:00 Alkaline Phosphatase 37 U/L (45-117) L 06/17/17 09:00 Creatine Kinase 174 IU/L (39-308) 06/11/17 10:31 Creatine Kinase Index 1.3 % (0.0-5.0) 06/11/17 10:31 CK-MB (CK-2) 2.379 ng/mL (0.5-3.6) 06/11/17 10:31 Troponin I 0.02 ng/ml (0.00-0.05) 06/11/17 10:31 Total Protein 6.0 g/dl (6.4-8.2) L 06/17/17 09:00 Albumin 2.3 g/dl (3.4-5.0) L 06/17/17 09:00 Urine Color Yellow 06/11/17 13:14 Urine Appearance Slcloudy 06/11/17 13:14 Urine pH 5.0 (5.0-8.0) D 06/11/17 13:14 Ur Specific [place] 1.020 (1.005-1.025) 06/11/17 13:14 Urine Protein 1+ (NEGATIVE) H 06/11/17 13:14 Urine Glucose (UA) Negative (NEGATIVE) 06/11/17 13:14 Urine Ketones Negative (NEGATIVE) 06/11/17 13:14 Urine Blood Negative (NEGATIVE) 06/11/17 13:14 Urine Nitrite Negative (NEGATIVE) 06/11/17 13:14 Urine Bilirubin Negative (NEGATIVE) 06/11/17 13:14 Urine Urobilinogen Negative mg/dL (0.2-1.0) 06/11/17 13:14 Urine RBC None /hpf (0-3) 06/11/17 13:14 Urine WBC 1 /hpf (3-5) 06/11/17 13:14 Ur Epithelial Cells Rare /hpf (FEW) 06/11/17 13:14 Urine Bacteria Rare /hpf (NONE SEEN) 06/11/17 13:14 Hyaline Casts 1 /lpf 06/11/17 13:14 Urine Mucus Rare 06/11/17 13:14 U Random Total Protein 20 mg/dl (5-11.9) H 06/17/17 09:00 Ur Random Sodium 27 MMOL/L 06/17/17 09:00 Ur Random Potassium 25.4 MMOL/L 06/17/17 09:00 Ur Random Chloride 19 MMOL/L 06/17/17 09:00 Ur Random Urea Nitrogn 1456 mg/dL 06/17/17 09:00 Urine Creatinine 64.2 mg/dL (20-370) 06/17/17 09:00 Active Medications Generic Name Dose Route Start Last Admin Trade Name Freq PRN Reason Stop Dose Admin Acetaminophen 650 mg 06/11/17 20:58 06/12/17 02:07 Tylenol - PO 650 mg Q4H PRN Administration FEVER OR PAIN Albuterol Sulfate 1 amp 06/13/17 10:37 06/16/17 10:28 Ventolin 0.083% Nebulizer Soln - NEB 1 amp Q4H PRN Administration SHORT OF BREATH/WHEEZING Albuterol Sulfate 2 puff 06/14/17 13:52 06/16/17 21:19 Ventolin Hfa Inhaler - IH 2 puff Q4H PRN Administration SHORT OF BREATH/WHEEZING Alprazolam 1 mg 06/14/17 22:12 06/17/17 03:51 Xanax - PO 1 mg Q8H PRN Administration ANXIETY Aspirin 325 mg 06/12/17 10:00 06/17/17 10:08 Asa - PO 325 mg DAILY [facility] Administration Atorvastatin Calcium 20 mg 06/11/17 22:00 06/16/17 21:19 Lipitor - PO 20 mg HS [facility] Administration Budesonide/Formoterol Fumarate 2 puff 06/13/17 11:00 06/17/17 10:06 Symbicort 160/4.5mcg - IH 2 puff BID [facility] Administration Diltiazem HCl 300 mg 06/12/17 10:00 06/17/17 10:09 Cardizem Cd - PO 300 mg DAILY [facility] Administration Guaifenesin 10 ml 06/16/17 12:42 Robitussin - PO Q8H PRN COUGH Heparin Sodium (Porcine) 5,000 unit 06/12/17 10:00 06/17/17 10:08 Heparin - SQ 5,000 unit BID [facility] Administration Methylprednisolone Sodium Succinate 20 mg 06/16/17 12:46 06/17/17 10:11 Solu-Medrol - IVPB 20 mg Q8H-IV [facility] Administration Tiotropium [place] 1 puff 06/13/17 10:00 06/17/17 10:06 Spiriva - IH 1 puff DAILY [facility]ANN Administration Valsartan 160 mg 06/12/17 10:00 06/17/17 10:09 Diovan - PO 160 mg DAILY LUANN Administration ASSESSMENT/PLAN: Pt is a 71yo M with PMHx of COPD, CAD, CVA who presented w/ gradual onset SOB + productive cough, recent fevers/chills/headache/diarrhea admitted for likely COPD Exacerbation. # Acute COPD Exacerbation - secondary to likely viral infection, unlikely PNA - ABG shows likely chronic, compensated respiratory acidosis - On IV Solumedrol 100mg q8H - can taper steroids - Continue Albuterol Neb Q4 PRN, avoid LINSEY bc patient already on LAMA - Continue O2 as needed - Continue BiPAP at 35% as needed - Continue home Spiriva + Symbicort - Pt still on Zosyn, continue until tmrw as per ID # +SIRS - unknown source - UA negative, Blood cx neg to date - If workup is negative, likely related to ?viral illness - F/u CBC, Temp Rest as per Primary. We will continue to follow the patient. Discussed w/ Dr Kim. Linnea Mary MD - PGY1 Visit type - Emergency Visit Emergency Visit: No - New Patient This patient is new to me today: No - Critical Care Critical Care patient: No - Discharge Referral Referred to [facility] No
--- NOTE | 2017-06-17 17:25 | PN ---
Progress Note (short form) - Note Progress Note: PULMONARY SUBJECTIVE IMPROVEMENT VSS/AFEBRILE ANICTERIC SCATTERED RHONCHI S1S2 BS+ NO EDEMA LABS/MEDS/RADIOGRAPHS/NOTES REVIEWED Acute Exacerbation of COPD Acute on Chronic Bronchitis SIRS O2 dependent COPD Increased CR MEDROL D/C PREDNISONE BEGUN O2 as needed BD TX NIPPV PRN LAMA/LABA/ICS -> Avoid LINSEY VTE prophylaxsis renal eval/avoid nephrotoxic agents will hold zosyn for now Jaya BAEZ MD
[2017-06-17] MEDS: ATORVASTATIN CA 20 MG TABLET (FP) PO SCH (21:25)
[2017-06-18 00:17] LABS: URINE APPEARANCE TURBID; URINE BILIRUBIN NEGATIVE (NEGATIVE); URINE BLOOD 1+ (NEGATIVE); URINE COLOR DKYELLOW; URINE GLUCOSE (UA) 3+ (NEGATIVE); URINE KETONE NEGATIVE (NEGATIVE); URINE LEUK ESTERASE NEGATIVE (NEGATIVE); URINE NITRITE NEGATIVE (NEGATIVE); URINE PROTEIN NEGATIVE (NEGATIVE); URINE UROBILINOGEN NEGATIVE mg/dL (0.2-1.0)
[2017-06-18 00:28] LABS: URINE HYALINE CAST 1 /lpf; URINE MUCUS RARE; URINE RBC <1 /hpf (0-3); URINE WBC 1 /hpf (3-5)
[2017-06-18 06:43] VITALS: PULSE 71
[2017-06-18 07:41] LABS: MCH 29.5 pg (25.7-33.7); MCHC 32.2 g/dl (32.0-35.9); MEAN CELL VOLUME 91.7 fl (80-96); MEAN PLT VOLUME 7.6 fl (7.5-11.1); PLATELET COUNT 325 K/MM3 (134-434); RDW 12.8 % (11.9-15.9)
[2017-06-18 08:21] LABS: ANION GAP 1 (8-16); CALCIUM 8.1 mg/dL (8.5-10.1); CO2 38 mmol/L (21-32); CREATININE 1.4 mg/dL (0.7-1.3); GLUCOSE,RANDOM 127 mg/dL (74-106); MAGNESIUM 2.2 mg/dL (1.8-2.4); PHOSPHOROUS 2.9 mg/dL (2.5-4.9)
[2017-06-18] MEDS ORDERED: predniSONE 20 MG TABLET (UD) PO SCH (10:00)
[2017-06-18] MEDS ORDERED: PT OWN MED DRAWER 7, Y5N ONE (10:51)
[2017-06-18] MEDS: ASPIRIN 325 MG TABLET PO SCH (10:52)
[2017-06-18] MEDS: VALSARTAN 160 MG TABLET (UD) PO SCH (10:53)
[2017-06-18] MEDS: HEPARIN NA (PORCINE) 5,000 UNITS/ML 1ML VIAL SQ SCH (10:54)
[2017-06-18] MEDS: TIOTROPIUM BROMIDE 18 MCG/INH (DEVICE W/ 5 CAPSULES) IH SCH (10:54)
[2017-06-18] MEDS: BUDESONIDE/FORMETEROL FUMARATE 160/4.5 mcg INHALER IH SCH (10:55)
--- NOTE | 2017-06-18 11:15 | PN ---
Progress Note (short form) - Note Progress Note: PULMONARY States breathing is improving. No cough or wheezing. No fevers or chills. Last Vital Signs Temp Pulse Resp BP Pulse Ox 98.6 F 71 20 136/63 95 06/18/17 06:10 06/18/17 11:03 06/18/17 06:10 06/18/17 06:10 06/18/17 11:03 Gen: NAD at rest Heart: RRR Lung: distant breath sounds, no wheezes Abd: soft, nontender Ext: no edema CBC, BMP 06/18/17 07:15 06/18/17 07:15 Active Medications Acetaminophen (Tylenol -) 650 mg PO Q4H PRN PRN Reason: FEVER OR PAIN Last Admin: 06/12/17 02:07 Dose: 650 mg Albuterol Sulfate (Ventolin 0.083% Nebulizer Soln -) 1 amp NEB Q4H PRN PRN Reason: SHORT OF BREATH/WHEEZING Last Admin: 06/16/17 10:28 Dose: 1 amp Albuterol Sulfate (Ventolin Hfa Inhaler -) 2 puff IH Q4H PRN PRN Reason: SHORT OF BREATH/WHEEZING Last Admin: 06/16/17 21:19 Dose: 2 puff Aspirin (Asa -) 325 mg PO DAILY [facility] Last Admin: 06/18/17 10:52 Dose: 325 mg Atorvastatin Calcium (Lipitor -) 20 mg PO HS [facility] Last Admin: 06/17/17 21:25 Dose: 20 mg Budesonide/Formoterol Fumarate (Symbicort 160/4.5mcg -) 2 puff IH BID [facility] Last Admin: 06/18/17 10:55 Dose: 2 puff Diltiazem HCl (Cardizem Cd -) 300 mg PO DAILY [facility] Last Admin: 06/18/17 10:54 Dose: 300 mg Guaifenesin (Robitussin -) 10 ml PO Q8H PRN PRN Reason: COUGH Heparin Sodium (Porcine) (Heparin -) 5,000 unit SQ BID [facility] Last Admin: 06/18/17 10:54 Dose: Not Given Prednisone (Deltasone -) 20 mg PO DAILY [facility] Last Admin: 06/18/17 10:53 Dose: 20 mg Tiotropium [place] (Spiriva -) 1 puff IH DAILY [facility] Last Admin: 06/18/17 10:54 Dose: 1 puff Valsartan (Diovan -) 160 mg PO DAILY [facility] Last Admin: 06/18/17 10:53 Dose: 160 mg A/P Acute COPD Exacerbation Acute on Chronic Bronchitis Chronic Hypoxic Respiratory Failure - prednisone taper as outpt - inhaled bronchodilators - O2 to keep SpO2 >90%
[2017-06-18 11:17] VITALS: BP 165/64; TEMP 97.5
--- NOTE | 2017-06-18 11:35 | DS ---
Physical Exam: SUBJECTIVE: Patient seen and examined OBJECTIVE: Vital Signs Period Temp Pulse Resp BP Sys/Ruiz Pulse Ox Last 24 Hr 97.1 F-98.6 F 69-100 18-22 136-165/63-76 95-95 PHYSICAL EXAM GENERAL: The patient is awake, alert, and fully oriented, in no acute distress. HEAD: Normal with no signs of trauma. EYES: PERRL, extraocular movements intact, sclera anicteric, conjunctiva clear. ENT: Ears normal, nares patent, oropharynx clear without exudates, moist mucous membranes. NECK: Trachea midline, full range of motion, supple. LUNGS: Breath sounds equal, clear to auscultation bilaterally, no wheezes, no crackles, no accessory muscle use. HEART: Regular rate and rhythm, S1, S2 without murmur, rub or gallop. ABDOMEN: Soft, nontender, nondistended, normoactive bowel sounds, no guarding, no rebound, no hepatosplenomegaly, no masses. EXTREMITIES: 2+ pulses, warm, well-perfused, no edema. NEUROLOGICAL: Cranial nerves II through XII grossly intact. Normal speech, gait not observed. PSYCH: Normal mood, normal affect. SKIN: Warm, dry, normal turgor, no rashes or lesions noted. LABS Laboratory Results - last 24 hr 06/17/17 06/18/17 06/18/17 09:00 07:15 07:15 WBC 16.0 H D RBC 4.12 Hgb 12.1 Hct 37.8 MCV 91.7 MCH 29.5 MCHC 32.2 RDW 12.8 Plt Count 325 MPV 7.6 Neutrophils % No Result Required. Lymphocytes % No Result Required. Sodium 141 Potassium 4.3 Chloride 102 Carbon Dioxide 38 H Anion Gap 1 L BUN 62 H Creatinine 1.4 H Random Glucose 127 H D Calcium 8.1 L Phosphorus 2.9 Magnesium 2.2 Urine Color Dkyellow Urine Appearance Turbid Urine pH 6.0 Ur Specific [place] 1.015 Urine Protein Negative Urine Glucose (UA) 3+ H Urine Ketones Negative Urine Blood 1+ H Urine Nitrite Negative Urine Bilirubin Negative Urine Urobilinogen Negative Urine RBC <1 Urine WBC 1 Hyaline Casts 1 Urine Mucus Rare HOSPITAL COURSE: Date of Admission:06/12/17 Date of Discharge: 06/18/17 Minutes to complete discharge: 45 Discharge Summary Reason For Visit: Abdominal pain Current Active Problems ANTONIO (acute kidney injury) (Acute) Abdominal pain (Acute) Acute exacerbation of chronic obstructive pulmonary disease (COPD) (Acute) Acute on chronic respiratory failure with hypoxemia (Acute) Diarrhea (Acute) SIRS (systemic inflammatory response syndrome) (Acute) COPD (chronic obstructive pulmonary disease) (Chronic) Coronary artery disease (Chronic) History of CVA (cerebrovascular accident) (Chronic) History of coronary artery bypass graft (Chronic) Hyperlipidemia (Chronic) Hypertension (Chronic) Peripheral arterial disease (Chronic) Weakness (Chronic) Hospital Course: This is a 71 year old man with a history of COPD, CAD, CABG, HTN, hyperlipidemia , PAD, CVA who presented to the ER on 06/11 complaining of abdominal pain, fever , chills, diarrhea, loss of appetite and dizziness. I had received a flu shot one day prior. In the ER, he was afebrile. Exam was unremarkable. WBC was 19.5, sodium 132, potassium 5.3, BUN 49/creatinine 2.6. CXR showed COPD with no acute process. Abdominal x-rays showed retained stool, distended stomach and small bowel loops consistent with focal ileus vs developing SBO. He was treated with Zosyn and seen by Dr. Navarrete for possible pneumonia. On the night of 06/12, he became acutely SOB and hypoxic. CXR was repeated and still showed no acute process. He was treated with SoluMedrol and BiPAP. He was seen by Dr. Masterson. He improved and SoluMedrol was tapered. Zosyn was discontinued on . Renal US showed bilateral renal sinus lipomatosis and cortical thinning, left kidney cyst, and no evidence of stones or hydronephrosis. Renal function improved. Physical therapy was started. He is being discharged home with visiting nurse home care services on 06/18. Condition: Stable - Instructions Diet, Activity, Other Instructions: You may resume activity as tolerated. Please follow a low sodium diet. Please taper Prednisone as directed. Continue to use oxygen at 3 LPM. If you have fever, chills, worsening shortness of breath, please call Dr. Bui or return to the ER, otherwise you should follow-up with Dr. Bui in 2 weeks. Referrals: Chantal Bui MD [Primary Care Provider] - Disposition: [facility]/HOME HEALTH CARE - Home Medications Comprehensive Discharge Medication List: Ambulatory Orders Acetaminophen [Tylenol .Regular Strength -] 650 mg PO Q4H PRN #0 tablet Alprazolam [Xanax] 1 mg PO TID PRN #0 tablet 06/16/13 Aspirin [ASA -] 325 mg PO DAILY #0 tablet NS 06/16/13 Atorvastatin Ca [Lipitor] 20 mg PO HS #0 tablet 06/16/13 Diltiazem Cd [Cardizem Cd -] 300 mg PO DAILY #0 cap.cd.24h 06/16/13 Tiotropium [place] [Spiriva] 1 inh PO DAILY #1 inh 06/16/13 Valsartan/Hydrochlorothiazide [Valsartan-Hctz 160-12.5 mg Tab] 1 each PO DAILY 06/11/17 Albuterol 0.083% Nebulizer [place] [Ventolin 0.083% Nebulizer Soln -] 1 amp NEB Q4H PRN #25 amp 06/18/17 Budesonide/Formeterol Fumarate [SYMBICORT 160/4.5mcg -] 2 puff IH BID #1 inhaler 06/18/17 Guaifenesin [Robitussin -] 10 ml PO Q8H PRN #1 bottle 06/18/17 Prednisone [Deltasone -] 10 mg PO DAILY #13 tablet 06/18/17 This patient is new to me today: Yes Date on this admission: 06/18/17 Emergency Visit: Yes ED Registration Date: 06/12/17 Care time: The patient presented to the Emergency Department on the above date and was hospitalized for further evaluation of their emergent condition. Critical Care patient: No - Discharge Referral Referred to [facility] No
[2017-06-18 11:54] LABS: PLATELET ESTIMATE ADEQUATE (NORMAL); TOTAL CELLS COUNTED 100
--- NOTE | 2017-06-18 12:25 | PN ---
Progress Note (short form) - Note Progress Note: Renal follow up for ANTONIO Pt seen and examined at the bedside awake and alert no acute complaints for discharge home today Vital Signs Temperature 97.5 F L 06/18/17 09:00 Pulse Rate 71 06/18/17 11:03 Respiratory Rate 22 06/18/17 09:00 Blood Pressure 165/64 06/18/17 09:00 O2 Sat by Pulse Oximetry (%) 95 06/18/17 11:03 Intake & Output 06/15/17 06/16/17 06/17/17 06/18/17 23:59 23:59 23:59 23:59 Intake Total 1050 500 650 200 Output Total 1100 400 Balance -50 500 250 200 Weight 153 lb 153 lb 4 oz 140 lb 6.4 oz 148 lb NAD RRR CTA No edema CBC, BMP 06/18/17 07:15 06/18/17 07:15 Current Medications Acetaminophen (Tylenol -) 650 mg PO Q4H PRN PRN Reason: FEVER OR PAIN Last Admin: 06/12/17 02:07 Dose: 650 mg Albuterol Sulfate (Ventolin 0.083% Nebulizer Soln -) 1 amp NEB Q4H PRN PRN Reason: SHORT OF BREATH/WHEEZING Last Admin: 06/16/17 10:28 Dose: 1 amp Albuterol Sulfate (Ventolin Hfa Inhaler -) 2 puff IH Q4H PRN PRN Reason: SHORT OF BREATH/WHEEZING Last Admin: 06/16/17 21:19 Dose: 2 puff Aspirin (Asa -) 325 mg PO DAILY [facility] Last Admin: 06/18/17 10:52 Dose: 325 mg Atorvastatin Calcium (Lipitor -) 20 mg PO HS [facility] Last Admin: 06/17/17 21:25 Dose: 20 mg Budesonide/Formoterol Fumarate (Symbicort 160/4.5mcg -) 2 puff IH BID [facility] Last Admin: 06/18/17 10:55 Dose: 2 puff Diltiazem HCl (Cardizem Cd -) 300 mg PO DAILY [facility] Last Admin: 06/18/17 10:54 Dose: 300 mg Guaifenesin (Robitussin -) 10 ml PO Q8H PRN PRN Reason: COUGH Heparin Sodium (Porcine) (Heparin -) 5,000 unit SQ BID [facility] Last Admin: 06/18/17 10:54 Dose: Not Given Prednisone (Deltasone -) 20 mg PO DAILY [facility] Last Admin: 06/18/17 10:53 Dose: 20 mg Tiotropium [place] (Spiriva -) 1 puff IH DAILY [facility] Last Admin: 06/18/17 10:54 Dose: 1 puff Valsartan (Diovan -) 160 mg PO DAILY [facility] Last Admin: 06/18/17 10:53 Dose: 160 mg A/P 71 year old gentleman with PMhx of COPD, CAD, CVA with right sided weakness who presented with SOB and found to have COPD exacerbation with ANTONIO With Cr of 2.6 ( baseline 1.1 in 2015). #Acute Kidney Injury likely due to volume depletion Renal function continues to improve toward baseline continue ARB oral fluid intake as tolerated pt advised to avoid nsaids as a outpatient to follow up in our office for management of ANTONIO/CKD #COPD exacerbation continue steroids, o2 as per pulmonary supportive care Thank you Will follow Reymundo Johnson DO Problem List - Problems (1) Acute on chronic respiratory failure with hypoxemia Code(s): J96.21 - ACUTE AND CHRONIC RESPIRATORY FAILURE WITH HYPOXIA (2) COPD (chronic obstructive pulmonary disease) Code(s): J44.9 - CHRONIC OBSTRUCTIVE PULMONARY DISEASE, UNSPECIFIED (3) SIRS (systemic inflammatory response syndrome) Code(s): R65.10 - SIRS OF NON-INFECTIOUS ORIGIN W/O ACUTE ORGAN DYSFUNCTION (4) Sepsis Code(s): A41.9 - SEPSIS, UNSPECIFIED ORGANISM Qualifiers: Sepsis type: sepsis due to unspecified organism Qualified Code(s): A41.9 - Sepsis, unspecified organism; A41.9 - Sepsis, unspecified organism; A41.9 - Sepsis, unspecified organism (5) Weakness Code(s): R53.1 - WEAKNESS (6) ANTONIO (acute kidney injury) Code(s): N17.9 - ACUTE KIDNEY FAILURE, UNSPECIFIED
== END 2017-06-18 12:25 | disposition home health service (06) | DRG 190 ==
LOC: JER 09:42 → JERBED 16:23 → J6S 19:45 → OBSVTOIN 06-12 09:08
PROVIDERS: ADMIT Internal Medicine; ATTEND Internal Medicine
DX: J44.1 Chronic obstructive pulmonary disease with (acute) exacerbation (principal); J96.21 Acute and chronic respiratory failure with hypoxia; J18.9 Pneumonia, unspecified organism; I69.351 Hemiplegia and hemiparesis following cerebral infarction affecting right dominant side; R65.10 Systemic inflammatory response syndrome (SIRS) of non-infectious origin without acute organ dysfunction; E87.2 Acidosis; N17.9 Acute kidney failure, unspecified; I25.10 Atherosclerotic heart disease of native coronary artery without angina pectoris; Z95.1 Presence of aortocoronary bypass graft; I73.9 Peripheral vascular disease, unspecified; Z87.891 Personal history of nicotine dependence; Z99.81 Dependence on supplemental oxygen; K59.00 Constipation, unspecified; R53.1 Weakness; R21 Rash and other nonspecific skin eruption; N18.9 Chronic kidney disease, unspecified; E86.9 Volume depletion, unspecified; N28.1 Cyst of kidney, acquired
CPT/HCPCS: 36415; 36600; 71010-TC; 74000-TC; 76775-TC; 80048; 80053; 81003; 81015; 82436; 82553; 82570; 82803; 83605; 83735; 84100; 84133; 84156; 84300; 84484; 84540; 84550; 85025; 85027; 87040; 93005; 93010; 94640; 94660; 97116-GP; 97161-GP; 99284-25; G0378; J1644